=== PATIENT | female | born 1990 | race Caucasian/White ===

== ENCOUNTER 2019-01-26 12:21 | Emergency (ER) | payer MEDICAID ==
[~2019-01-26] VITALS: Ht 170.2 cm; Wt 132.6 kg
[~2019-01-26 12:21] MED LIST: DIVA500T2 PO; FENO54TA17 PO; HYDR25CA PO; LAMO25TA5 PO; METH500T97 PO; ONDA4TAB7 PO; OXCA300T19 PO; OXYC1TAB7 PO; ZOLP-413 PO
[2019-01-26 13:53] LABS: BASOPHILS # (AUTO) 0.04 x10^3/uL (0-0.1); BASOPHILS % (AUTO) 0 % (0-1); EOSINOPHILS # (AUTO) 0.09 x10^3/uL (0-0.4); EOSINOPHILS % (AUTO) 1 % (1-7); LYMPHOCYTES # (AUTO) 2.49 x10^3/uL (1-3.4); LYMPHOCYTES % (AUTO) 24 % (22-44); MD NO; MEAN CORPUSCULAR HEMOGLOBIN 28.4 pg (27.0-34.8); MEAN CORPUSCULAR HGB CONC 33.5 g/dL (32.4-35.8); MEAN CORPUSCULAR VOLUME 84.8 fL (80-100); MEAN PLATELET VOLUME 7.5 fL (7.4-10.4); MONOCYTES # (AUTO) 0.57 x10^3/uL (0.2-0.8); MONOCYTES % (AUTO) 6 % (2-9); NEUTROPHILS # (AUTO) 7.18 x10^3/uL (1.8-6.8); NEUTROPHILS % (AUTO) 69 % (42-75); PLATELET COUNT 311 x10^3/uL (130-400); RED BLOOD COUNT 4.92 x10^6/uL (3.82-5.3); RED CELL DISTRIBUTION WIDTH 15.6 % (9.6-15.2)
[2019-01-26 14:02] LABS: ALBUMIN 3.5 g/dL (3.4-5.0); ANION GAP 7 mmol/L (5-15); CALCIUM 9.1 mg/dL (8.5-10.1); CHLORIDE 106 mmol/L (98-107); CREATININE 0.67 mg/dL (0.55-1.02)
[2019-01-26 14:03] LABS: CULTURE INDICATED? YES; HCG UR SG 1.017 (1.003-1.030); MICROSCOPIC INDICATED
[2019-01-26] MEDS ORDERED: ONDANSETRON ODT 4 MG ONE (15:03)
[2019-01-26] MEDS ORDERED: HYDROmorphone 1 MG/ML, 1ML ONE (15:04)
[2019-01-26] MEDS ORDERED: KETOROLAC 30 MG/1 ML ONE (15:13)
--- NOTE | 2019-01-26 15:17 | NUR ---
MEDICATED PATIENT WITH ZOFRAN, DILAUDID AND TORADOL. PT RESTING WITH NO COMPLAINTS. VS UPDATED AND WNL.
[2019-01-26 15:18] VITALS: BP 129/68
[2019-01-26] MEDS ORDERED: KETOROLAC 30 MG/1 ML IM ONE (15:30)
[2019-01-26] MEDS ORDERED: HYDROmorphone 1 MG/ML, 1ML IM ONE (15:30)
[2019-01-26] MEDS ORDERED: ONDANSETRON ODT 4 MG PO ONE (15:30)
--- NOTE | 2019-01-26 15:41 | NUR ---
Patient/Caregiver given discharge instructions and they have confirmed that they understand the instructions. Patient ambulatory with steady gait.
== END 2019-01-26 15:43 | disposition home or self-care (01) ==
LOC: ED 15:40
DX: R10.2 Pelvic and perineal pain (principal); G43.909 Migraine, unspecified, not intractable, without status migrainosus
CPT/HCPCS: 36415; 76830; 80048; 81001; 81025; 82040; 85025; 87086; 96372; 99284; J1170; J1885; Q0162

== ENCOUNTER 2019-03-05 15:23 | Emergency (ER) | payer MEDICAID ==
[~2019-03-05] VITALS: Ht 170.2 cm; Wt 136.6 kg
[~2019-03-05 15:23] MED LIST changes: +GABA300C10 PO
--- NOTE | 2019-03-05 16:16 | NUR ---
PT PRESENTS TO ED WITH RIGHT LOWER ABD PAIN ONSET 12 HRS AGO, WITH ASSOCIATED NAUSEA. PT STATES THAT SHE HAS MILD UTERINE CRAMPING BUT NO DRAINAGE OR BLEEDING. PT DENIES VOMITING/DIARRHEA. PT HAD LEFT OOPHORECTOMY 1 WEEK AGO S/P LEFT OVARIAN TORSION. PT REPORTS DRAINAGE FROM SURGICAL SITES TODAY. LAPROSCOPIC INCISIONS WITH SURGICAL GLUE X 4 PRESENT TO ABD, NO DRAINAGE, ERYTHEMA OR EDEMA NOTED. MARGINS WELL APPROXIMATED. PT ATTACHED TO BP AND SPO2 MONITORS. CALL LIGHT IN REACH. BLANKET PROVIDED. AWAITING MD AND ORDERS.
--- NOTE | 2019-03-05 16:18 | NUR ---
ERP KRISTY AT BEDSIDE TO EVALUATE PT.
[2019-03-05] MEDS ORDERED: HYDROmorphone 1 MG/ML, 1ML VIAL ONE ×2 (16:49→18:27)
[2019-03-05] MEDS ORDERED: HYDROmorphone 1 MG/ML, 1ML AMP IM PRN (17:00)
[2019-03-05] MEDS ORDERED: OXYC-302 PO (17:04)
[2019-03-05] MEDS ORDERED: GABA300C PO (17:04)
[2019-03-05] MEDS ORDERED: IBUP-1222 PO (17:04)
[2019-03-05] MEDS ORDERED: ACET325T14 PO (17:05)
--- NOTE | 2019-03-05 17:05 | NUR ---
PT MEDICATED PER EMAR, TOLERATED WELL. BP AND SPO2 MONITORS IN PLACE. PT REPORTS 8/10 RIGHT LOWER ABD PAIN AT THIS TIME. LAB AT BEDSIDE FOR DRAW.
--- NOTE | 2019-03-05 17:25 | NUR ---
PT RESTING ON GURNEY, PT A&O, RESPS EVEN AND UNLABORED. PT REPORTS PAIN LEVEL UNCHANGED SO FAR S/P DILAUDID. AWAITING US AND DISPO AT THIS TIME.
[2019-03-05 17:30] LABS: BASOPHILS # (AUTO) 0.04 x10^3/uL (0-0.1); BASOPHILS % (AUTO) 0 % (0-1); EOSINOPHILS # (AUTO) 0.12 x10^3/uL (0-0.4); EOSINOPHILS % (AUTO) 1 % (1-7); LYMPHOCYTES # (AUTO) 3.01 x10^3/uL (1-3.4); LYMPHOCYTES % (AUTO) 34 % (22-44); MD NO; MEAN CORPUSCULAR HEMOGLOBIN 28.9 pg (27.0-34.8); MEAN CORPUSCULAR HGB CONC 33.9 g/dL (32.4-35.8); MEAN CORPUSCULAR VOLUME 85.2 fL (80-100); MEAN PLATELET VOLUME 7.5 fL (7.4-10.4); MONOCYTES # (AUTO) 0.56 x10^3/uL (0.2-0.8); MONOCYTES % (AUTO) 6 % (2-9); NEUTROPHILS # (AUTO) 5.25 x10^3/uL (1.8-6.8); NEUTROPHILS % (AUTO) 58 % (42-75); PLATELET COUNT 326 x10^3/uL (130-400); RED BLOOD COUNT 4.43 x10^6/uL (3.82-5.3); RED CELL DISTRIBUTION WIDTH 16.3 % (9.6-15.2)
[2019-03-05 17:39] LABS: ALBUMIN 3.5 g/dL (3.4-5.0); ANION GAP 9 mmol/L (5-15); CHLORIDE 105 mmol/L (98-107); CREATININE 0.54 mg/dL (0.55-1.02)
--- NOTE | 2019-03-05 17:56 | NUR ---
PT IN US AT THIS TIME.
--- NOTE | 2019-03-05 18:18 | NUR ---
pt back from US, pt is a&o, resps even and unlabored. pt reports pain level improved s/p dilaudid but increased during ultrasound. KALEY Randle notified. verbal order received for repeat dose dilaudid, 1 mg IM.
[2019-03-05] MEDS ORDERED: HYDROmorphone 2 MG/ML, 1ML IM PRN (18:30)
--- NOTE | 2019-03-05 18:50 | NUR ---
report to break RN Oshaunnessey. pt a&o, resps even and unlabored, reports pain improved. bp and spo2 monitors in place.
--- NOTE | 2019-03-05 18:54 | NUR ---
break rn: pt reports improvement in pain. pt calling for ride home. pt resting calmly in bed. will continue to monitor.
[2019-03-05 19:43] VITALS: BP 136/83
== END 2019-03-05 19:45 | disposition home or self-care (01) ==
LOC: ED 16:01
DX: R10.2 Pelvic and perineal pain (principal)
CPT/HCPCS: 36415; 76830; 80048; 82040; 84703; 85025; 96372; 99284; J1170

== ENCOUNTER 2019-03-08 12:07 | Emergency (ER) | payer MEDICAID ==
[~2019-03-08] VITALS: Ht 170.2 cm; Wt 132.0 kg
[~2019-03-08 12:07] MED LIST changes: +ACET325T14 PO; +GABA300C PO; +IBUP-1222 PO; +OXYC-302 PO
--- NOTE | 2019-03-08 13:08 | NUR ---
Pt to 41 from lobby
[2019-03-08 13:18] LABS: BASOPHILS # (AUTO) 0.03 x10^3/uL (0-0.1); BASOPHILS % (AUTO) 0 % (0-1); EOSINOPHILS # (AUTO) 0.09 x10^3/uL (0-0.4); EOSINOPHILS % (AUTO) 1 % (1-7); LYMPHOCYTES # (AUTO) 2.37 x10^3/uL (1-3.4); LYMPHOCYTES % (AUTO) 16 % (22-44); MD NO; MEAN CORPUSCULAR HEMOGLOBIN 28.7 pg (27.0-34.8); MEAN CORPUSCULAR HGB CONC 33.6 g/dL (32.4-35.8); MEAN CORPUSCULAR VOLUME 85.5 fL (80-100); MEAN PLATELET VOLUME 7.3 fL (7.4-10.4); MONOCYTES # (AUTO) 0.45 x10^3/uL (0.2-0.8); MONOCYTES % (AUTO) 3 % (2-9); NEUTROPHILS # (AUTO) 11.81 x10^3/uL (1.8-6.8); NEUTROPHILS % (AUTO) 80 % (42-75); PLATELET COUNT 388 x10^3/uL (130-400); RED BLOOD COUNT 5.11 x10^6/uL (3.82-5.3); RED CELL DISTRIBUTION WIDTH 16.6 % (9.6-15.2)
[2019-03-08 13:23] LABS: ALANINE AMINOTRANSFERASE 30 U/L (12-78); ALBUMIN 3.9 g/dL (3.4-5.0); ANION GAP 11 mmol/L (5-15); CALCIUM 9.7 mg/dL (8.5-10.1); CHLORIDE 105 mmol/L (98-107); CREATININE 0.72 mg/dL (0.55-1.02)
[2019-03-08 13:27] LABS: ALKALINE PHOSPHATASE 86 U/L (45-117); BILIRUBIN,TOTAL 0.3 mg/dL (0.2-1.0); TOTAL PROTEIN 8.9 g/dL (6.4-8.2)
--- NOTE | 2019-03-08 13:42 | NUR ---
PATIENT TO US AFTER GIVING UA SAMPLE.
[2019-03-08 13:56] LABS: MICROSCOPIC AUTO
[2019-03-08 13:57] LABS: CULTURE INDICATED? NO
--- NOTE | 2019-03-08 14:18 | NUR ---
pt retuned from US, upright on gurney awake & calm, responds approp to staff, NAD, comfort measures provided, call light within reach.
[2019-03-08] MEDS ORDERED: MORPHINE SULFATE 4 MG/ML, 1ML ONE (14:43)
[2019-03-08] MEDS ORDERED: ONDANSETRON 2MG/ML, 2ML ONE (14:43)
[2019-03-08] MEDS ORDERED: ACETAMINOPHEN 325 MG TABLET ONE (14:43)
[2019-03-08] MEDS ORDERED: HYDROmorphone 1 MG/ML, 1ML VIAL ONE ×3 (14:58→17:28)
[2019-03-08] MEDS: HYDROmorphone 2 MG/ML, 1ML IVPush PRN ×2 (14:59→16:08)
[2019-03-08] MEDS ORDERED: ONDANSETRON 2MG/ML, 2ML IVPush ONE (15:00)
--- NOTE | 2019-03-08 15:02 | NUR ---
pt remains upright on gurney awake & calm, responds approp to staff, NAD, comfort measures provided, call light within reach.
--- NOTE | 2019-03-08 15:34 | NUR ---
pt to CT
--- NOTE | 2019-03-08 15:53 | NUR ---
pt returned from CT
--- NOTE | 2019-03-08 16:01 | NUR ---
pt upright on gurney awake & calm, responds approp to staff, NAD, comfort measures provided, call light within reach.
[2019-03-08] MEDS ORDERED: OMNIPAQUE 350 MG/ML, 100ML BOTTLE ONE (16:11)
--- NOTE | 2019-03-08 16:45 | NUR ---
report given to adina White transferred to room 4 via [facility].
--- NOTE | 2019-03-08 16:49 | NUR ---
Recieved report from OH Moore. All questions answered. Assuming care of pt.
[2019-03-08] MEDS ORDERED: SODIUM CHLORIDE 0.9% 1,000ML IVBOLUS ONE (17:00)
[2019-03-08] MEDS ORDERED: HYDROmorphone 2 MG/ML, 1ML IVPush PRN (17:00)
[2019-03-08 17:53] VITALS: BP 112/80
--- NOTE | 2019-03-08 17:55 | NUR ---
Provided pt medication per EMAR. Pt requesting water. Pt appreciative for medicaiton. All safety measures in place. Call light within reach.
== END 2019-03-08 18:35 | disposition home or self-care (01) ==
LOC: ED 15:15
DX: R31.29 Other microscopic hematuria (principal); G40.909 Epilepsy, unspecified, not intractable, without status epilepticus; Z86.718 Personal history of other venous thrombosis and embolism; Z90.49 Acquired absence of other specified parts of digestive tract; Z79.899 Other long term (current) drug therapy; Z88.0 Allergy status to penicillin; Z88.1 Allergy status to other antibiotic agents
CPT/HCPCS: 36415; 74177; 76830; 80053; 81001; 84703; 85025; 96374; 96375; 96376; 99284; J1170; J2405; J7030; Q9967

== ENCOUNTER 2019-04-07 18:16 | Emergency (ER) | payer MEDICAID ==
[~2019-04-07] VITALS: Ht 170.2 cm; Wt 131.5 kg
[2019-04-07 19:13] LABS: BASOPHILS # (AUTO) 0.03 x10^3/uL (0-0.1); BASOPHILS % (AUTO) 0 % (0-1); EOSINOPHILS # (AUTO) 0.13 x10^3/uL (0-0.4); EOSINOPHILS % (AUTO) 1 % (1-7); LYMPHOCYTES # (AUTO) 2.72 x10^3/uL (1-3.4); LYMPHOCYTES % (AUTO) 23 % (22-44); MD NO; MEAN CORPUSCULAR HEMOGLOBIN 28.9 pg (27.0-34.8); MEAN CORPUSCULAR HGB CONC 33.4 g/dL (32.4-35.8); MEAN CORPUSCULAR VOLUME 86.4 fL (80-100); MEAN PLATELET VOLUME 7.3 fL (7.4-10.4); MONOCYTES # (AUTO) 0.73 x10^3/uL (0.2-0.8); MONOCYTES % (AUTO) 6 % (2-9); NEUTROPHILS # (AUTO) 8.29 x10^3/uL (1.8-6.8); NEUTROPHILS % (AUTO) 70 % (42-75); PLATELET COUNT 314 x10^3/uL (130-400); RED BLOOD COUNT 4.69 x10^6/uL (3.82-5.3); RED CELL DISTRIBUTION WIDTH 15.7 % (9.6-15.2)
--- NOTE | 2019-04-07 19:18 | NUR ---
pt to room from lobby
--- NOTE | 2019-04-07 19:20 | NUR ---
pt in us, us called and rn asked to have them walk pt to room 14 when imaging is done
[2019-04-07 19:22] LABS: ANION GAP 8 mmol/L (5-15); CALCIUM 8.8 mg/dL (8.5-10.1); CHLORIDE 106 mmol/L (98-107)
--- NOTE | 2019-04-07 19:38 | NUR ---
URINE SAMPLE TAKEN TO LAB
--- NOTE | 2019-04-07 19:43 | NUR ---
OVARIAN CYST RIGHT SIDE, HAD ULTRASOUND 2 DAYS AGO, "RECEIVED A CALL FROM OB IN [place] TOLD HER TO GO TO ED DUE TO QUESTION OF TORSION". MONITORS APPLIED, PROVIDED PT WITH WARM BLANKET, CALL LIGHT WITHIN REACH.
--- NOTE | 2019-04-07 20:06 | NUR ---
PT UP TO RR WITH STEADY GAIT
[2019-04-07] MEDS ORDERED: ONDANSETRON ODT 4 MG ONE (20:12)
[2019-04-07] MEDS ORDERED: KETOROLAC 30 MG/1 ML ONE (20:12)
[2019-04-07] MEDS ORDERED: HYDROcodone/APAP 5/325 TABLET ONE (20:13)
[2019-04-07 20:15] LABS: MICROSCOPIC INDICATED
[2019-04-07 20:18] VITALS: BP 110/53
--- NOTE | 2019-04-07 20:19 | NUR ---
PT RESTING CALMLY, MEDICATED PER MAR, SIDERAILS UP X2, MONITORS IN PLACE, CALL LIGHT WITHIN REACH
[2019-04-07] MEDS ORDERED: KETOROLAC 30 MG/1 ML IM ONE (20:30)
[2019-04-07] MEDS ORDERED: HYDROcodone/APAP 5/325 TABLET PO ONE (20:30)
[2019-04-07] MEDS ORDERED: ONDANSETRON ODT 4 MG PO ONE (20:30)
[2019-04-07 20:36] LABS: CULTURE INDICATED? YES
[2019-04-07] MEDS ORDERED: ZIPRASIDONE 20 MG INJ IM ONE ×2 (21:14→21:30)
[2019-04-07] MEDS ORDERED: DICYCLOMINE 20 MG TABLET PO ONE (21:30)
[2019-04-07] MEDS ORDERED: DICYCLOMINE 20 MG TABLET ONE (21:41)
[2019-04-07] MEDS ORDERED: DICYCLOMINE 10 MG CAPSULE ONE (21:44)
--- NOTE | 2019-04-07 21:44 | NUR ---
Patient/Caregiver given discharge instructions and they have confirmed that they understand the instructions. Patient ambulatory with steady gait.
== END 2019-04-07 21:48 | disposition home or self-care (01) ==
LOC: ED 20:08
DX: N83.291 Other ovarian cyst, right side (principal)
CPT/HCPCS: 36415; 76830; 80048; 81001; 84703; 85025; 87086; 96372; 99284; J1885; Q0162

== ENCOUNTER 2019-04-25 14:43 | Emergency (ER) | payer MEDICAID ==
[~2019-04-25] VITALS: Ht 170.2 cm; Wt 129.0 kg
[2019-04-25] MEDS ORDERED: HYDROmorphone 1 MG/ML, 1ML INJ IVPush PRN (15:30)
[2019-04-25] MEDS ORDERED: ONDANSETRON 2MG/ML, 2ML IVPush ONE (15:30)
[2019-04-25] MEDS ORDERED: DIPHENHYDRAMINE 50 MG/ML, 1ML IVPush ONE (15:30)
[2019-04-25 15:38] LABS: BASOPHILS # (AUTO) 0.03 x10^3/uL (0-0.1); BASOPHILS % (AUTO) 0 % (0-1); EOSINOPHILS # (AUTO) 0.04 x10^3/uL (0-0.4); EOSINOPHILS % (AUTO) 0 % (1-7); LYMPHOCYTES # (AUTO) 2.15 x10^3/uL (1-3.4); LYMPHOCYTES % (AUTO) 22 % (22-44); MD NO; MEAN CORPUSCULAR HEMOGLOBIN 28.7 pg (27.0-34.8); MEAN CORPUSCULAR HGB CONC 32.6 g/dL (32.4-35.8); MEAN PLATELET VOLUME 7.7 fL (7.4-10.4); MONOCYTES # (AUTO) 0.63 x10^3/uL (0.2-0.8); MONOCYTES % (AUTO) 6 % (2-9); NEUTROPHILS # (AUTO) 7.02 x10^3/uL (1.8-6.8); NEUTROPHILS % (AUTO) 71 % (42-75); PLATELET COUNT 276 x10^3/uL (130-400); RED BLOOD COUNT 4.74 x10^6/uL (3.82-5.3); RED CELL DISTRIBUTION WIDTH 15.5 % (9.6-15.2)
[2019-04-25 15:51] LABS: ALANINE AMINOTRANSFERASE 42 U/L (12-78); ALBUMIN 3.4 g/dL (3.4-5.0); ANION GAP 7 mmol/L (5-15); CALCIUM 8.8 mg/dL (8.5-10.1); CHLORIDE 110 mmol/L (98-107); CREATININE 0.73 mg/dL (0.55-1.02)
[2019-04-25 15:55] LABS: ALKALINE PHOSPHATASE 73 U/L (45-117); BILIRUBIN,TOTAL 0.3 mg/dL (0.2-1.0); TOTAL PROTEIN 7.7 g/dL (6.4-8.2)
[2019-04-25 16:04] LABS: MICROSCOPIC NOT IND
[2019-04-25 16:06] LABS: CULTURE INDICATED? NO
[2019-04-25] MEDS ORDERED: DIPHENHYDRAMINE 50 MG/ML, 1ML ONE (16:13)
[2019-04-25] MEDS ORDERED: ONDANSETRON 2MG/ML, 2ML ONE (16:13)
[2019-04-25] MEDS ORDERED: HYDROmorphone 2 MG/ML, 1ML ONE (16:14)
[2019-04-25 17:38] VITALS: BP 119/78
== END 2019-04-25 18:30 | disposition home or self-care (01) ==
LOC: ED 15:52
DX: N83.201 Unspecified ovarian cyst, right side (principal); R10.84 Generalized abdominal pain; G40.909 Epilepsy, unspecified, not intractable, without status epilepticus; G43.909 Migraine, unspecified, not intractable, without status migrainosus; Z90.49 Acquired absence of other specified parts of digestive tract; Z90.89 Acquired absence of other organs; Z90.721 Acquired absence of ovaries, unilateral; Z86.718 Personal history of other venous thrombosis and embolism
CPT/HCPCS: 36415; 76830; 80053; 81003; 84703; 85025; 96374; 96375; 99284; J1170; J1200; J2405

== ENCOUNTER 2019-04-29 15:55 | Emergency (ER) | payer MEDICAID ==
[~2019-04-29] VITALS: Ht 170.2 cm; Wt 131.9 kg
--- NOTE | 2019-04-29 16:10 | NUR ---
Pt ambulated to the bathroom, urine sample cup in hand. Pt back to room and changing into gown.
[2019-04-29] MEDS ORDERED: KETOROLAC 30 MG/1 ML IVPush ONE (16:41)
[2019-04-29 16:58] LABS: MICROSCOPIC NOT IND
[2019-04-29] MEDS ORDERED: ONDANSETRON 2MG/ML, 2ML IVPush ONE (17:00)
[2019-04-29 17:02] LABS: CULTURE INDICATED? NO
[2019-04-29] MEDS ORDERED: ONDANSETRON 2MG/ML, 2ML ONE (17:02)
[2019-04-29] MEDS ORDERED: KETOROLAC 30 MG/1 ML ONE (17:02)
[2019-04-29 17:10] LABS: BASOPHILS # (AUTO) 0.02 x10^3/uL (0-0.1); BASOPHILS % (AUTO) 0 % (0-1); EOSINOPHILS # (AUTO) 0.08 x10^3/uL (0-0.4); EOSINOPHILS % (AUTO) 1 % (1-7); LYMPHOCYTES # (AUTO) 2.66 x10^3/uL (1-3.4); LYMPHOCYTES % (AUTO) 23 % (22-44); MD NO; MEAN CORPUSCULAR HEMOGLOBIN 28.8 pg (27.0-34.8); MEAN CORPUSCULAR HGB CONC 32.7 g/dL (32.4-35.8); MEAN CORPUSCULAR VOLUME 87.9 fL (80-100); MEAN PLATELET VOLUME 7.7 fL (7.4-10.4); MONOCYTES # (AUTO) 0.63 x10^3/uL (0.2-0.8); MONOCYTES % (AUTO) 5 % (2-9); NEUTROPHILS # (AUTO) 8.41 x10^3/uL (1.8-6.8); NEUTROPHILS % (AUTO) 71 % (42-75); PLATELET COUNT 313 x10^3/uL (130-400); RED BLOOD COUNT 4.86 x10^6/uL (3.82-5.3); RED CELL DISTRIBUTION WIDTH 15.1 % (9.6-15.2)
--- NOTE | 2019-04-29 17:11 | NUR ---
Pt medicated per MAR.
[2019-04-29 17:23] LABS: ALBUMIN 3.6 g/dL (3.4-5.0); ANION GAP 9 mmol/L (5-15); CALCIUM 9.4 mg/dL (8.5-10.1); CHLORIDE 104 mmol/L (98-107); CREATININE 0.65 mg/dL (0.55-1.02)
--- NOTE | 2019-04-29 18:39 | NUR ---
Dr. Davidson at bedside to evaluate pt.
--- NOTE | 2019-04-29 19:10 | NUR ---
Pt ambulated to bathroom, no assistance required.
[2019-04-29] MEDS ORDERED: HYDROcodone/APAP 5/325 TABLET PO ONE (19:20)
[2019-04-29] MEDS ORDERED: HYDROcodone/APAP 5/325 TABLET ONE (19:35)
--- NOTE | 2019-04-29 19:38 | NUR ---
Pt medicated per MAR.
[2019-04-29 19:40] VITALS: BP 125/81
--- NOTE | 2019-04-29 19:40 | NUR ---
Patient/Caregiver given discharge instructions and they have confirmed that they understand the instructions. Patient ambulatory with steady gait.
== END 2019-04-29 19:43 | disposition home or self-care (01) ==
LOC: ED 19:34
DX: N83.291 Other ovarian cyst, right side (principal); G40.909 Epilepsy, unspecified, not intractable, without status epilepticus; E66.01 Morbid (severe) obesity due to excess calories; Z68.42 Body mass index [BMI] 45.0-49.9, adult
CPT/HCPCS: 36415; 76830; 80048; 81003; 82040; 84703; 85025; 96374; 96375; 99284; J1885; J2405

== ENCOUNTER 2019-10-03 22:14 | Emergency (ER) | payer MEDICAID ==
[~2019-10-03] VITALS: Ht 170.2 cm; Wt 124.6 kg
[~2019-10-03 22:14] MED LIST changes: +ATOR20TA86 PO; +OXYC5TAB3 PO; +SERT100T PO
--- NOTE | 2019-10-03 23:20 | NUR ---
PT TO ROOM FROM LOBBY
[2019-10-03 23:54] LABS: MICROSCOPIC INDICATED
[2019-10-03 23:55] LABS: BASOPHILS # (AUTO) 0.02 x10^3/uL (0-0.1); BASOPHILS % (AUTO) 0 % (0-1); EOSINOPHILS # (AUTO) 0.16 x10^3/uL (0-0.4); EOSINOPHILS % (AUTO) 2 % (1-7); LYMPHOCYTES # (AUTO) 2.71 x10^3/uL (1-3.4); LYMPHOCYTES % (AUTO) 32 % (22-44); MD NO; MEAN CORPUSCULAR HEMOGLOBIN 29.1 pg (27.0-34.8); MEAN CORPUSCULAR HGB CONC 32.8 g/dL (32.4-35.8); MEAN CORPUSCULAR VOLUME 88.9 fL (80-100); MONOCYTES # (AUTO) 0.58 x10^3/uL (0.2-0.8); MONOCYTES % (AUTO) 7 % (2-9); NEUTROPHILS # (AUTO) 5.12 x10^3/uL (1.8-6.8); NEUTROPHILS % (AUTO) 60 % (42-75); PLATELET COUNT 230 x10^3/uL (130-400); RED BLOOD COUNT 4.24 x10^6/uL (3.82-5.3); RED CELL DISTRIBUTION WIDTH 15.5 % (9.6-15.2)
[2019-10-04 00:03] LABS: CHLORIDE 108 mmol/L (98-107)
[2019-10-04 00:03] LABS: CULTURE INDICATED? YES
[2019-10-04 00:09] LABS: ALBUMIN 3.2 g/dL (3.4-5.0); ANION GAP 7 mmol/L (5-15); CALCIUM 8.3 mg/dL (8.5-10.1)
--- NOTE | 2019-10-04 00:10 | NUR ---
BREAK RN: PT IN IMAGING
[2019-10-04 00:35] LABS: CREATININE 0.56 mg/dL (0.55-1.02)
[2019-10-04 00:43] VITALS: BP 121/78
== END 2019-10-04 01:25 | disposition home or self-care (01) ==
LOC: ED 10-04 01:19
DX: N83.291 Other ovarian cyst, right side (principal); G40.909 Epilepsy, unspecified, not intractable, without status epilepticus; Z90.49 Acquired absence of other specified parts of digestive tract
CPT/HCPCS: 36415; 76830; 80048; 81001; 82040; 84703; 85025; 87086; 99284

== ENCOUNTER 2019-11-07 10:52 | Emergency (ER) | payer MEDICAID ==
[~2019-11-07] VITALS: Ht 170.2 cm; Wt 121.5 kg
[2019-11-07 11:23] VITALS: BP 144/87
== END 2019-11-07 11:56 | disposition home or self-care (01) ==
LOC: ED 11:46
DX: Z76.0 Encounter for issue of repeat prescription (principal); Z90.89 Acquired absence of other organs; Z90.49 Acquired absence of other specified parts of digestive tract; Z90.722 Acquired absence of ovaries, bilateral
CPT/HCPCS: 99283

== ENCOUNTER 2019-11-08 19:48 | Emergency (ER) | payer MEDICAID ==
[~2019-11-08] VITALS: Ht 170.2 cm; Wt 121.4 kg
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
[2019-11-08] MEDS ORDERED: HYDROcodone/APAP 5/325 TABLET ONE ×2 (20:23→21:50)
[2019-11-08] MEDS ORDERED: SODIUM CHLORIDE FLUSH 10ML SYR IVF ONE (20:30)
[2019-11-08] MEDS ORDERED: HYDROcodone/APAP 5/325 TABLET PO ONE (20:30)
--- NOTE | 2019-11-08 20:40 | NUR ---
PIV ESTB. MED PER JAN. UA WALKED TO LAB. AWARE OF PENDING CT. AMBULATORY TO RESTROOM C STEADY GAIT. CALL LIGHT INREACH.
[2019-11-08 20:46] LABS: MICROSCOPIC NOT IND
[2019-11-08 20:49] LABS: BASOPHILS # (AUTO) 0.05 x10^3/uL (0-0.1); BASOPHILS % (AUTO) 0 % (0-1); EOSINOPHILS % (AUTO) 2 % (1-7); LYMPHOCYTES # (AUTO) 3.13 x10^3/uL (1-3.4); LYMPHOCYTES % (AUTO) 26 % (22-44); MD NO; MEAN CORPUSCULAR HEMOGLOBIN 29.4 pg (27.0-34.8); MEAN CORPUSCULAR HGB CONC 32.5 g/dL (32.4-35.8); MEAN CORPUSCULAR VOLUME 90.4 fL (80-100); MONOCYTES # (AUTO) 0.63 x10^3/uL (0.2-0.8); MONOCYTES % (AUTO) 5 % (2-9); NEUTROPHILS # (AUTO) 7.84 x10^3/uL (1.8-6.8); NEUTROPHILS % (AUTO) 66 % (42-75); PLATELET COUNT 312 x10^3/uL (130-400); RED BLOOD COUNT 4.96 x10^6/uL (3.82-5.3); RED CELL DISTRIBUTION WIDTH 15.7 % (9.6-15.2)
[2019-11-08 20:52] LABS: ALANINE AMINOTRANSFERASE 39 U/L (12-78); ALBUMIN 3.5 g/dL (3.4-5.0); ANION GAP 10 mmol/L (5-15); CALCIUM 9.5 mg/dL (8.5-10.1); CHLORIDE 108 mmol/L (98-107); CREATININE 0.69 mg/dL (0.55-1.02)
[2019-11-08 20:55] LABS: ALKALINE PHOSPHATASE 95 U/L (45-117); BILIRUBIN,TOTAL 0.4 mg/dL (0.2-1.0); TOTAL PROTEIN 8.3 g/dL (6.4-8.2)
[2019-11-08 20:56] LABS: CULTURE INDICATED? NO
--- NOTE | 2019-11-08 21:07 | NUR ---
PT C/O INCREASED LOWER ABD PAIN "SPASMS" RAD TO BACK. WILL LET MD KNOW.
[2019-11-08] MEDS ORDERED: OMNIPAQUE 350 MG/ML, 100ML BOTTLE ONE (21:48)
[2019-11-08] MEDS ORDERED: HYDROcodone/APAP 5/325 TABLET PO STA (21:49)
--- NOTE | 2019-11-08 22:13 | NUR ---
AT FOR CO-DISCHARGE.
[2019-11-08 22:32] VITALS: BP 127/98
[2019-11-08 22:34] LABS: HCG UR SG 1.021 (1.003-1.030)
== END 2019-11-08 22:34 | disposition home or self-care (01) ==
LOC: ED 20:09
DX: S16.1XXA Strain of muscle, fascia and tendon at neck level, initial encounter (principal); R10.84 Generalized abdominal pain; M54.9 Dorsalgia, unspecified; G89.29 Other chronic pain; Z90.89 Acquired absence of other organs; Z90.49 Acquired absence of other specified parts of digestive tract; Z86.718 Personal history of other venous thrombosis and embolism; V49.59XA Passenger injured in collision with other motor vehicles in traffic accident, initial encounter; Y93.89 Activity, other specified; Y92.410 Unspecified street and highway as the place of occurrence of the external cause; Y99.8 Other external cause status
CPT/HCPCS: 36415; 72125; 74177; 80053; 81003; 81025; 83690; 85025; 99284; Q9967

== ENCOUNTER 2019-11-30 08:22 | Emergency (ER) | payer MEDICAID ==
[~2019-11-30] VITALS: Ht 170.2 cm; Wt 125.0 kg
[2019-11-30 08:30] VITALS: BP 139/83
[2019-11-30 09:19] LABS: BASOPHILS # (AUTO) 0.04 x10^3/uL (0-0.1); BASOPHILS % (AUTO) 1 % (0-1); EOSINOPHILS # (AUTO) 0.18 x10^3/uL (0-0.4); EOSINOPHILS % (AUTO) 3 % (1-7); LYMPHOCYTES # (AUTO) 1.95 x10^3/uL (1-3.4); LYMPHOCYTES % (AUTO) 36 % (22-44); MD NO; MEAN CORPUSCULAR HEMOGLOBIN 30.3 pg (27.0-34.8); MEAN CORPUSCULAR HGB CONC 33.8 g/dL (32.4-35.8); MEAN CORPUSCULAR VOLUME 89.5 fL (80-100); MEAN PLATELET VOLUME 7.9 fL (7.4-10.4); MONOCYTES # (AUTO) 0.39 x10^3/uL (0.2-0.8); MONOCYTES % (AUTO) 7 % (2-9); NEUTROPHILS # (AUTO) 2.94 x10^3/uL (1.8-6.8); NEUTROPHILS % (AUTO) 54 % (42-75); PLATELET COUNT 230 x10^3/uL (130-400); RED BLOOD COUNT 4.97 x10^6/uL (3.82-5.3); RED CELL DISTRIBUTION WIDTH 15.9 % (9.6-15.2)
[2019-11-30 09:33] LABS: ALBUMIN 3.4 g/dL (3.4-5.0); ANION GAP 6 mmol/L (5-15); CALCIUM 8.4 mg/dL (8.5-10.1); CHLORIDE 106 mmol/L (98-107); CREATININE 0.67 mg/dL (0.55-1.02)
--- NOTE | 2019-11-30 09:34 | NUR ---
COMMUNITY SPORTS COORDINATOR: PT IN ULTRASOUND,
--- NOTE | 2019-11-30 10:11 | NUR ---
TEST AUTOMATION ARCHITECT: PT TO ROOM FROM LOBBY, GAIT SLOW AND STEADY
[2019-11-30] MEDS ORDERED: NAPROXEN 500 MG TABLET ONE (10:38)
--- NOTE | 2019-11-30 10:52 | NUR ---
PT LEFT AMA, STATES "I THINK I WAS SUPPOSED TO GO TO A DIFFERENT BUILDING. I WAS SUPPOSED TO HAVE A 2-HR SURGERY FOR MY OVARIAN CYSTS THIS MORNING BUT THEY TOLD ME THEY COULDN'T DO IT BECAUSE THEY DIDN'T HAVE THE PAPERWORK & SENT ME HERE TO GET IT DONE." THIS RN ENCOURAGED PT TO STAY FOR LAB RESULTS BUT PT DECLINED & REQUESTED TO LEAVE, DR ABBOTT AWARE, PT SIGNED AMA FORM & AMBULATED STEADILY TO UT DESK PWD.
[2019-11-30] MEDS ORDERED: NAPROXEN 500 MG TABLET PO ONE (11:00)
[2019-12-01 10:30] LABS: MICROSCOPIC NOT IND
[2019-12-01 10:47] LABS: CULTURE INDICATED? NO
== END 2019-11-30 10:52 | disposition left against medical advice (07) ==
LOC: ED 10:39
DX: N83.201 Unspecified ovarian cyst, right side (principal); Z90.89 Acquired absence of other organs; Z90.49 Acquired absence of other specified parts of digestive tract; Z86.718 Personal history of other venous thrombosis and embolism; Z90.721 Acquired absence of ovaries, unilateral
CPT/HCPCS: 36415; 76830; 80048; 81003; 82040; 84703; 85025; 99284

== ENCOUNTER 2020-03-31 21:08 | Observation (INO) | payer MEDICAID ==
[~2020-03-31] VITALS: Ht 170.2 cm; Wt 128.0 kg
[2020-03-31] MEDS ORDERED: ONDANSETRON 2MG/ML, 2ML IVPush ONE (21:30)
[2020-03-31] MEDS ORDERED: SODIUM CHLORIDE FLUSH 10ML SYR IVF ONE ×2 (21:30→23:00)
[2020-03-31] MEDS ORDERED: ONDANSETRON 2MG/ML, 2ML ONE (21:37)
[2020-03-31] MEDS ORDERED: MORPHINE SULFATE 4 MG/ML, 1ML ONE ×3 (21:38→23:20)
[2020-03-31] MEDS: MORPHINE SULFATE 4 MG/ML, 1ML IVPush PRN ×2 (21:46→22:42)
--- NOTE | 2020-03-31 21:46 | NUR ---
DISCUSSED PT'S ALLERGIES, PT STATED SHE HAS HAD MORPHINE IN PAST WITH NO COMPLICATIONS
[2020-03-31 21:49] LABS: BASOPHILS # (AUTO) 0.05 x10^3/uL (0-0.1); BASOPHILS % (AUTO) 0 % (0-1); EOSINOPHILS # (AUTO) 0.17 x10^3/uL (0-0.4); EOSINOPHILS % (AUTO) 1 % (1-7); LYMPHOCYTES # (AUTO) 4.54 x10^3/uL (1-3.4); LYMPHOCYTES % (AUTO) 35 % (22-44); MD NO; MEAN CORPUSCULAR HGB CONC 33.2 g/dL (32.4-35.8); MEAN CORPUSCULAR VOLUME 93.6 fL (80-100); MEAN PLATELET VOLUME 7.5 fL (7.4-10.4); MONOCYTES # (AUTO) 1.01 x10^3/uL (0.2-0.8); MONOCYTES % (AUTO) 8 % (2-9); NEUTROPHILS # (AUTO) 7.08 x10^3/uL (1.8-6.8); NEUTROPHILS % (AUTO) 55 % (42-75); PLATELET COUNT 367 x10^3/uL (130-400); RED BLOOD COUNT 4.62 x10^6/uL (3.82-5.3); RED CELL DISTRIBUTION WIDTH 13.9 % (9.6-15.2)
--- NOTE | 2020-03-31 21:51 | NUR ---
PT RESTING ON GURNEY, MONITORS APPLIED, SIDERAIL SUP X2, CALL LIGHT WITHIN REACH. IV SITE STARTED, PT MEDICATED PER JAN. URINE SAMPLE TAKEN TO LAB
[2020-03-31 21:52] LABS: ALANINE AMINOTRANSFERASE 38 U/L (12-78); ALBUMIN 3.4 g/dL (3.4-5.0); ANION GAP 10 mmol/L (5-15); CALCIUM 8.8 mg/dL (8.5-10.1); CHLORIDE 107 mmol/L (98-107)
[2020-03-31 21:57] LABS: ALKALINE PHOSPHATASE 81 U/L (45-117); BILIRUBIN,TOTAL 0.2 mg/dL (0.2-1.0)
[2020-03-31 22:06] LABS: MICROSCOPIC INDICATED
[2020-03-31 22:15] LABS: CULTURE INDICATED? YES
[2020-03-31] MEDS ORDERED: IBUP100T PO (22:25)
--- NOTE | 2020-03-31 22:42 | NUR ---
PT POLYMER TESTER LIGHT REQUESTING MORE PAIN MEDICATION, STATED RIGHT BACK AND ABDOMEN PAIN IS BACK. PT MEDICATED PER MAR
--- NOTE | 2020-03-31 22:47 | NUR ---
TEACHER ASSOCIATE: DR. VIRIDIANA COLVIN/POSTDOCTORAL FELLOW PROVIDER (DR. RICK) FOR HIS OFFICE PAGED PER DR. VEGA REQUEST.
[2020-03-31] MEDS ORDERED: SODIUM CHLORIDE 0.9% 1,000ML IVBOLUS ONE (23:00)
[2020-03-31] MEDS ORDERED: MORPHINE SULFATE 4 MG/ML, 1ML IVPush PRN (23:00)
--- NOTE | 2020-03-31 23:42 | NUR ---
PT RESTING ON GURNEY, DENIES NEEDS, CALL LIGHT WITHIN REACH. AWAITING GYNE TO SEE
--- NOTE | 2020-04-01 00:03 | NUR ---
MILAGRO FROM SURGERY ON TELEPHONE UPDATED ON PT STATUS, VS, RESULTS. PT TO SURGERY IN 5-10 MINS
--- NOTE | 2020-04-01 00:06 | NUR ---
Pt ambulated to restroom and asked to please strip clothes off to prepare for surgery, verbalized understanding. Pt also asked to please void.
[2020-04-01] MEDS ORDERED: BUPIVACAINE/PF-EPI 0.25% 1:200K ONE (00:18)
[2020-04-01] MEDS ORDERED: FENTANYL PF 100 MCG/2ML ONE ×4 (00:47→02:13)
[2020-04-01] MEDS ORDERED: VANCOMYCIN 1,000 MG ONE (00:58)
[2020-04-01] MEDS ORDERED: HALOPERIDOL 5 MG/ML IV PRN (01:00)
[2020-04-01] MEDS ORDERED: LABETALOL 5MG/ML, 20ML IV PRN (01:00)
[2020-04-01] MEDS ORDERED: HYDROmorphone 2 MG/ML, 1ML IVPush PRN (01:00)
[2020-04-01] MEDS ORDERED: OXYcodone 5 MG/5 ML ORAL.SOL UDC PO PRN ×2 (01:00→02:30)
[2020-04-01] MEDS ORDERED: hydrALAzine 20 MG/ML, 1ML IV PRN (01:00)
[2020-04-01] MEDS ORDERED: BUPIVACAINE/PF-EPI 0.25% 1:200K INFIL ONE (01:31)
[2020-04-01] MEDS ORDERED: SUGAMMADEX 200 MG/2 ML IVPush ONE (01:43)
[2020-04-01] MEDS ORDERED: GLYCOPYRROLATE 0.2MG/1ML, 5ML ONE (02:01)
[2020-04-01] MEDS ORDERED: CEFAZOLIN 1,000 MG ONE (02:01)
[2020-04-01] MEDS ORDERED: DEXAMETHASONE 4 MG/ML, 1ML ONE (02:01)
[2020-04-01] MEDS ORDERED: ROCURONIUM 10MG/ML,5ML ONE (02:01)
[2020-04-01] MEDS ORDERED: PROPOFOL 10 MG/ML, 20ML ONE (02:01)
[2020-04-01] MEDS ORDERED: SUCCINYLCHOLINE 20 MG/ML, 10ML ONE (02:01)
[2020-04-01] MEDS ORDERED: ONDANSETRON 2MG/ML, 2ML ONE (02:01)
[2020-04-01] MEDS ORDERED: NEOSTIGMINE 1 MG/ML, 10ML ONE (02:01)
[2020-04-01] MEDS ORDERED: LACTATED RINGERS 1,000 ML IV SCH (02:05)
[2020-04-01] MEDS ORDERED: MEPERIDINE/PF 25MG/ML,1ML ONE ×2 (02:13→02:27)
[2020-04-01] MEDS ORDERED: OXYcodone 5 MG/5 ML ORAL.SOL UDC ONE (02:13)
[2020-04-01] MEDS: MEPERIDINE/PF 25MG/ML,1ML IVPush PRN ×2 (02:15→02:30)
[2020-04-01] MEDS: FENTANYL PF 100 MCG/2ML IV PRN ×2 (02:20→02:25)
[2020-04-01] MEDS ORDERED: LORazepam 2 MG/ML, 1ML ONE (02:27)
[2020-04-01] MEDS ORDERED: ONDANSETRON 2MG/ML, 2ML IVPush PRN (02:30)
[2020-04-01] MEDS ORDERED: LORazepam 2 MG/ML, 1ML IVPush PRN (03:00)
[2020-04-01 03:15] VITALS: BP 103/67
[2020-04-01] MEDS: morphine SULFATE 10 MG/ML, 1ML IVPush PRN ×2 (03:42→04:53)
[2020-04-01] MEDS ORDERED: OXYC5CAP2 PO (05:11)
[2020-04-04] MEDS ORDERED: ONDA4TAB7 PO (07:15)
== END 2020-04-01 06:03 | disposition home or self-care (01) ==
LOC: ED 21:39 → INTOOBSV 04-01 00:12 → EDIP 04-01 00:12 → 4NE 04-01 03:26
PROVIDERS: ADMIT Obstetrics & Gynecology; ATTEND Obstetrics & Gynecology
DX: R10.31 Right lower quadrant pain (principal); G40.909 Epilepsy, unspecified, not intractable, without status epilepticus; G89.29 Other chronic pain; E66.01 Morbid (severe) obesity due to excess calories; K57.92 Diverticulitis of intestine, part unspecified, without perforation or abscess without bleeding; R11.2 Nausea with vomiting, unspecified; Z90.49 Acquired absence of other specified parts of digestive tract; Z90.721 Acquired absence of ovaries, unilateral; Z79.899 Other long term (current) drug therapy
CPT/HCPCS: 36415; 49320; 74176; 76830; 80053; 81001; 84703; 85025; 87086; 96374; 96375; 96376; 99285; G0378; J0330; J0690; J1100; J2060; J2175; J2270; J2405; J2704; J3010; J3370; J7030; 96361; J2710

== ENCOUNTER 2020-04-02 15:47 | Emergency (ER) | payer MEDICAID ==
[~2020-04-02] VITALS: Ht 170.2 cm; Wt 105.0 kg
[~2020-04-02 15:47] MED LIST changes: +IBUP100T PO; +OXYC5CAP2 PO
--- NOTE | 2020-04-02 16:04 | NUR ---
PT CAME IN CO OF ABD PAIN SINCE YESTERDAY. "I HAD ABD SURGERY YESTERDAY AND SINCE THEN I HAVE BEEN PUKING AND I CANT KEEP MY MEDS OR ANY FOOD OR WATER DOWN". DENIES PAINFUL URINATED. MD IS BEDSIDE FOR ASSESMENT.
[2020-04-02] MEDS ORDERED: ONDANSETRON 2MG/ML, 2ML ONE (16:13)
[2020-04-02] MEDS ORDERED: ONDANSETRON 2MG/ML, 2ML IVPush ONE (16:30)
[2020-04-02 16:49] LABS: BASOPHILS # (AUTO) 0.05 x10^3/uL (0-0.1); BASOPHILS % (AUTO) 1 % (0-1); EOSINOPHILS # (AUTO) 0.07 x10^3/uL (0-0.4); EOSINOPHILS % (AUTO) 1 % (1-7); LYMPHOCYTES # (AUTO) 3.22 x10^3/uL (1-3.4); LYMPHOCYTES % (AUTO) 40 % (22-44); MD NO; MEAN CORPUSCULAR HEMOGLOBIN 30.5 pg (27.0-34.8); MEAN CORPUSCULAR HGB CONC 32.7 g/dL (32.4-35.8); MEAN CORPUSCULAR VOLUME 93.1 fL (80-100); MEAN PLATELET VOLUME 7.5 fL (7.4-10.4); MONOCYTES # (AUTO) 0.51 x10^3/uL (0.2-0.8); MONOCYTES % (AUTO) 6 % (2-9); NEUTROPHILS # (AUTO) 4.32 x10^3/uL (1.8-6.8); NEUTROPHILS % (AUTO) 53 % (42-75); PLATELET COUNT 286 x10^3/uL (130-400); RED BLOOD COUNT 4.16 x10^6/uL (3.82-5.3); RED CELL DISTRIBUTION WIDTH 13.8 % (9.6-15.2)
[2020-04-02 16:52] LABS: ALANINE AMINOTRANSFERASE 28 U/L (12-78); ALBUMIN 3.1 g/dL (3.4-5.0); ANION GAP 8 mmol/L (5-15); CALCIUM 8.5 mg/dL (8.5-10.1); CHLORIDE 105 mmol/L (98-107); CREATININE 0.68 mg/dL (0.55-1.02)
[2020-04-02 16:55] LABS: ALKALINE PHOSPHATASE 69 U/L (45-117); BILIRUBIN,TOTAL 0.1 mg/dL (0.2-1.0); TOTAL PROTEIN 7.2 g/dL (6.4-8.2)
[2020-04-02] MEDS ORDERED: SODIUM CHLORIDE 0.9% 1,000ML IVBOLUS ONE (17:00)
[2020-04-02] MEDS ORDERED: SODIUM CHLORIDE FLUSH 10ML SYR IVF ONE (17:00)
[2020-04-02] MEDS ORDERED: HYDROcodone/APAP 5/325 TABLET PO STA (17:02)
[2020-04-02] MEDS ORDERED: HYDROcodone/APAP 5/325 TABLET ONE (17:03)
[2020-04-02 17:06] VITALS: BP 110/63
--- NOTE | 2020-04-02 17:06 | NUR ---
PT MEDICATED PER MAR
[2020-04-04] MEDS ORDERED: ONDA4TAB7 PO (07:15)
== END 2020-04-02 18:23 | disposition home or self-care (01) ==
LOC: ED 16:32
DX: K29.00 Acute gastritis without bleeding (principal); R11.2 Nausea with vomiting, unspecified; E86.0 Dehydration; G43.909 Migraine, unspecified, not intractable, without status migrainosus; Z90.49 Acquired absence of other specified parts of digestive tract; Z86.718 Personal history of other venous thrombosis and embolism
CPT/HCPCS: 36415; 80053; 83690; 85025; 96361; 96374; 99283; J2405; J7030

== ENCOUNTER → 2020-04-03 | Emergency (ER) | payer MEDICAID ==
[~2020-04-03] VITALS: Ht 170.2 cm; Wt 100.0 kg
[~2020-04-03] MED LIST changes: +DIVALPROEX 500 MG TABLET.DR ONE; +DIVALPROEX 500 MG TABLET.DR PO ONE; +DIVALPROEX 500 MG TABLET.DR PO SCH; +HYDROmorphone 1 MG/ML, 1ML INJ IM ONE; +HYDROmorphone 1 MG/ML, 1ML INJ ONE; +ONDANSETRON ODT 4 MG ONE; +ONDANSETRON ODT 4 MG PO ONE; +OXYcodone/APAP 10/325MG TABLET ONE; +OXYcodone/APAP 10/325MG TABLET PO ONE; +OXYcodone/APAP 5/325MG TABLET ONE; +OXYcodone/APAP 5/325MG TABLET PO ONE; +PLEASE ENTER HEIGHT AND WEIGHT MC SCH
[2020-04-03 20:59] LABS: BASOPHILS # (AUTO) 0.02 x10^3/uL (0-0.1); BASOPHILS % (AUTO) 0 % (0-1); EOSINOPHILS # (AUTO) 0.06 x10^3/uL (0-0.4); EOSINOPHILS % (AUTO) 1 % (1-7); LYMPHOCYTES # (AUTO) 2.42 x10^3/uL (1-3.4); LYMPHOCYTES % (AUTO) 23 % (22-44); MD NO; MEAN CORPUSCULAR HEMOGLOBIN 30.9 pg (27.0-34.8); MEAN CORPUSCULAR HGB CONC 33.8 g/dL (32.4-35.8); MEAN CORPUSCULAR VOLUME 91.3 fL (80-100); MEAN PLATELET VOLUME 7.8 fL (7.4-10.4); MONOCYTES # (AUTO) 0.48 x10^3/uL (0.2-0.8); MONOCYTES % (AUTO) 4 % (2-9); NEUTROPHILS # (AUTO) 7.77 x10^3/uL (1.8-6.8); NEUTROPHILS % (AUTO) 72 % (42-75); PLATELET COUNT 276 x10^3/uL (130-400); RED BLOOD COUNT 4.12 x10^6/uL (3.82-5.3); RED CELL DISTRIBUTION WIDTH 13.6 % (9.6-15.2)
[2020-04-03 21:05] LABS: ALANINE AMINOTRANSFERASE 27 U/L (12-78); ALBUMIN 3.1 g/dL (3.4-5.0); ANION GAP 5 mmol/L (5-15); CALCIUM 8.4 mg/dL (8.5-10.1); CHLORIDE 107 mmol/L (98-107); CREATININE 0.62 mg/dL (0.55-1.02); SALICYLATE LEVEL < 1.7 mg/dL (2.8-20.0)
[2020-04-03 21:10] LABS: ALKALINE PHOSPHATASE 66 U/L (45-117); BILIRUBIN,TOTAL 0.3 mg/dL (0.2-1.0); TOTAL PROTEIN 7.1 g/dL (6.4-8.2)
[2020-04-03 21:13] LABS: AMPHETAMINE SCREEN, URINE Negative (Negative); BARBITURATE SCREEN, URINE Negative (Negative); BENZODIAZEPINE SCREEN, URINE Negative (Negative); CANNABINOID SCREEN, URINE Negative (Negative); COCAINE SCREEN, URINE Negative (Negative); METHADONE SCREEN, URINE Negative (Negative); OPIATE SCREEN, URINE Positive (Negative)
--- NOTE | 2020-04-04 01:45 | NUR ---
Late entry, called [facility] and unit is bed full at this time.
[2020-04-04] MEDS: OXYcodone/APAP 5/325MG TABLET PO PRN ×2 (01:52→06:46)
[2020-04-04 02:17] LABS: MICROSCOPIC NOT IND
[2020-04-04 02:25] LABS: CULTURE INDICATED? NO
--- NOTE | 2020-04-04 03:00 | NUR ---
pt provived a hospital bed for pt comfort, pt has sitter at pt door, pt denied wants and new c/o.
--- NOTE | 2020-04-04 03:30 | NUR ---
TASK RN: PACKET FAXED TO [facility]. CONFIRMATION FAX RECEIVED.
--- NOTE | 2020-04-04 04:11 | NUR ---
pt resting in bed, pt a/o x4, pt denied any wants or needs at this time. pt room is si secured.
[2020-04-04 06:42] VITALS: BP 116/68
--- NOTE | 2020-04-04 07:22 | NUR ---
REPORT RECEIVED FROM CHAVEZ CASIANO. PT REPORTS NEW RUQ PAIN AND IS CONCERNED ABOUT CYSTS. WOULD LIKE TO SEE ED PROVIDER. PT AGREED TO SHOWER AFTER BREAKFAST. PT PLESANT AND COOPERATIVE AT THIS TIME. REPORTS NO THOUGHT OF SI THIS MORNING.
--- NOTE | 2020-04-04 07:25 | NUR ---
UPDATED THAT PT WOULD LIKE TO BE REEVALUATED BY HIM FOR RUQ PAIN.
--- NOTE | 2020-04-04 08:18 | NUR ---
BREAKFAST TRAY DELIVERED.
--- NOTE | 2020-04-04 09:24 | NUR ---
PT RESTING ON GURNEY WATCHING TV. NADN. SITTER OUTSIDE OF ROOM. WILL CONTINUE TO MONITOR.
--- NOTE | 2020-04-04 10:03 | NUR ---
ATTEMPT TO CALL REPORTX1.
--- NOTE | 2020-04-04 10:16 | NUR ---
REPORT TO ISIAH CASIANO. PT IS READY FOR TRANSPORT AT THIS TIME.
--- NOTE | 2020-04-04 10:24 | NUR ---
PT AMBULATED DOWN THE FINCH TO USE PHONE TO CONTACT FATHER.
--- NOTE | 2020-04-04 10:28 | NUR ---
PT RETURNED TO ROOM AWAITING TRANSPORT UPSTAIRS.
--- NOTE | 2020-04-04 10:46 | NUR ---
COPY OF LEGAL SENT TO [facility]
== END ==
LOC: ED 23:15
DX: R45.851 Suicidal ideations (principal); G43.909 Migraine, unspecified, not intractable, without status migrainosus; G89.18 Other acute postprocedural pain; R10.9 Unspecified abdominal pain; Z86.718 Personal history of other venous thrombosis and embolism
CPT/HCPCS: 36415; 80053; 80164; 80307; 84703; 85025; 96372; 99284; J1170; 81003; Q0162

== ENCOUNTER 2020-04-04 08:39 | Inpatient (IN) | payer MEDICAID ==
[~2020-04-04] VITALS: Ht 170.2 cm; Wt 117.9 kg
[~2020-04-04 08:39] MED LIST changes: -DIVALPROEX 500 MG TABLET.DR ONE; -DIVALPROEX 500 MG TABLET.DR PO ONE; -DIVALPROEX 500 MG TABLET.DR PO SCH; -HYDROmorphone 1 MG/ML, 1ML INJ IM ONE; -HYDROmorphone 1 MG/ML, 1ML INJ ONE; -ONDANSETRON ODT 4 MG ONE; -ONDANSETRON ODT 4 MG PO ONE; -OXYcodone/APAP 10/325MG TABLET ONE; -OXYcodone/APAP 10/325MG TABLET PO ONE; -OXYcodone/APAP 5/325MG TABLET ONE; -OXYcodone/APAP 5/325MG TABLET PO ONE; -PLEASE ENTER HEIGHT AND WEIGHT MC SCH
[2020-04-04] MEDS ORDERED: DOCUSATE 100 MG CAPSULE PO PRN (10:00)
[2020-04-04] MEDS ORDERED: POLYETHYLENE GLYCOL 17 GM PACKET PO PRN (10:00)
[2020-04-04] MEDS ORDERED: ACETAMINOPHEN 325 MG TABLET PO PRN (10:00)
[2020-04-04 10:36] LABS: CHOL/HDL RATIO 6.1; FREE T4 (FREE THYROXINE) 1.04 ng/dL (0.76-1.46); LDL/HDL RATIO 3.1 (0.5-3.0)
[2020-04-04] MEDS ORDERED: POTASSIUM CHLORIDE 10% 40 MEQ/30 ML UDC PO ONE (13:00)
[2020-04-04 13:45] VITALS: BP 116/88
[2020-04-04] MEDS: HYDROcodone/APAP 10/325 MG TABLET PO PRN ×2 (14:25→20:13)
[2020-04-04] MEDS: SERTRALINE 50MG TABLET PO SCH (14:41)
[2020-04-04 19:15] VITALS: BP 113/68
[2020-04-04] MEDS: TRAZODONE 100MG TABLET PO PRN (20:12)
[2020-04-04] MEDS: GABAPENTIN 300 MG CAPSULE PO SCH (21:39)
[2020-04-04] MEDS: DIVALPROEX 500 MG TABLET.DR PO SCH (21:40)
[2020-04-05] MEDS: HYDROcodone/APAP 10/325 MG TABLET PO PRN ×3 (05:08→17:42)
[2020-04-05 07:16] LABS: ANION GAP 7 mmol/L (5-15); CALCIUM 8.7 mg/dL (8.5-10.1); CHLORIDE 104 mmol/L (98-107); CREATININE 0.52 mg/dL (0.55-1.02)
[2020-04-05 07:33] VITALS: BP 130/82
[2020-04-05] MEDS: GABAPENTIN 300 MG CAPSULE PO SCH ×3 (08:40→20:04)
[2020-04-05] MEDS: SERTRALINE 50MG TABLET PO SCH (08:40)
[2020-04-05 19:30] VITALS: BP 102/68
[2020-04-05] MEDS: TRAZODONE 100MG TABLET PO PRN (20:04)
[2020-04-05] MEDS: DIVALPROEX 500 MG TABLET.DR PO SCH (20:04)
[2020-04-06] MEDS: HYDROcodone/APAP 10/325 MG TABLET PO PRN ×4 (00:28→20:37)
[2020-04-06 07:00] VITALS: BP 112/73
[2020-04-06] MEDS: SERTRALINE 50MG TABLET PO SCH (07:50)
[2020-04-06] MEDS: GABAPENTIN 300 MG CAPSULE PO SCH ×3 (07:50→20:37)
[2020-04-06] MEDS ORDERED: DIVA-61 PO (12:38)
[2020-04-06] MEDS ORDERED: TRAZ-175 PO (12:38)
[2020-04-06] MEDS ORDERED: GABA300C10 PO (12:38)
[2020-04-06] MEDS ORDERED: SERT50TA28 PO (12:38)
[2020-04-06 19:57] VITALS: BP 113/76
[2020-04-06] MEDS: TRAZODONE 100MG TABLET PO PRN (20:37)
[2020-04-06] MEDS: DIVALPROEX 500 MG TABLET.DR PO SCH (20:37)
[2020-04-07] MEDS: HYDROcodone/APAP 10/325 MG TABLET PO PRN ×2 (03:00→09:13)
[2020-04-07 05:33] VITALS: BP 117/72
[2020-04-07] MEDS: SERTRALINE 50MG TABLET PO SCH (08:39)
[2020-04-07] MEDS: GABAPENTIN 300 MG CAPSULE PO SCH (08:39)
== END 2020-04-07 09:48 | disposition home or self-care (01) | DRG 751 ==
LOC: 3E 11:19
PROVIDERS: ADMIT Psychiatry & Neurology Psychosomatic Medicine; ATTEND Psychiatry & Neurology Psychosomatic Medicine
DX: F33.2 Major depressive disorder, recurrent severe without psychotic features (principal); F11.20 Opioid dependence, uncomplicated; R45.851 Suicidal ideations; G89.29 Other chronic pain; E28.2 Polycystic ovarian syndrome; F60.3 Borderline personality disorder; G40.909 Epilepsy, unspecified, not intractable, without status epilepticus; E66.9 Obesity, unspecified; Z79.899 Other long term (current) drug therapy; Z83.3 Family history of diabetes mellitus; Z86.718 Personal history of other venous thrombosis and embolism; Z91.14 Patient's other noncompliance with medication regimen; Z88.1 Allergy status to other antibiotic agents; Z88.5 Allergy status to narcotic agent; Z88.0 Allergy status to penicillin; Z88.2 Allergy status to sulfonamides; Z88.8 Allergy status to other drugs, medicaments and biological substances; Z90.49 Acquired absence of other specified parts of digestive tract
CPT/HCPCS: 36415; 80048; 80061; 84439; 84443

== ENCOUNTER 2020-04-07 18:53 | Emergency (ER) | payer MEDICAID ==
[~2020-04-07] VITALS: Ht 170.2 cm; Wt 97.7 kg
[~2020-04-07 18:53] MED LIST changes: +DIVA-61 PO; +SERT50TA28 PO; +TRAZ-175 PO
[2020-04-07] MEDS ORDERED: MORPHINE SULFATE 4 MG/ML, 1ML ONE ×2 (19:27→20:07)
[2020-04-07] MEDS ORDERED: ONDANSETRON 2MG/ML, 2ML ONE (19:27)
[2020-04-07] MEDS ORDERED: SODIUM CHLORIDE FLUSH 10ML SYR IVF ONE (19:30)
[2020-04-07] MEDS ORDERED: ONDANSETRON 2MG/ML, 2ML IVPush ONE (19:30)
[2020-04-07] MEDS: MORPHINE SULFATE 4 MG/ML, 1ML IVPush PRN ×2 (19:34→20:11)
--- NOTE | 2020-04-07 19:35 | NUR ---
Break RN: blood drawn by outside laborer. urine sent to lab. medicated for pain and nausea. patient to Ultrasound.
[2020-04-07 19:36] LABS: BASOPHILS # (AUTO) 0.06 x10^3/uL (0-0.1); BASOPHILS % (AUTO) 1 % (0-1); EOSINOPHILS % (AUTO) 1 % (1-7); LYMPHOCYTES # (AUTO) 2.78 x10^3/uL (1-3.4); LYMPHOCYTES % (AUTO) 25 % (22-44); MD NO; MEAN CORPUSCULAR HEMOGLOBIN 30.7 pg (27.0-34.8); MEAN CORPUSCULAR HGB CONC 33.4 g/dL (32.4-35.8); MEAN PLATELET VOLUME 7.9 fL (7.4-10.4); MONOCYTES # (AUTO) 0.71 x10^3/uL (0.2-0.8); MONOCYTES % (AUTO) 6 % (2-9); NEUTROPHILS # (AUTO) 7.47 x10^3/uL (1.8-6.8); NEUTROPHILS % (AUTO) 67 % (42-75); PLATELET COUNT 308 x10^3/uL (130-400); RED CELL DISTRIBUTION WIDTH 13.8 % (9.6-15.2)
[2020-04-07 19:49] LABS: ALANINE AMINOTRANSFERASE 24 U/L (12-78); ALBUMIN 3.3 g/dL (3.4-5.0); ANION GAP 9 mmol/L (5-15); CALCIUM 9.1 mg/dL (8.5-10.1); CHLORIDE 104 mmol/L (98-107); CREATININE 0.65 mg/dL (0.55-1.02)
[2020-04-07 19:51] LABS: MICROSCOPIC NOT IND
[2020-04-07 19:53] LABS: ALKALINE PHOSPHATASE 81 U/L (45-117); BILIRUBIN,TOTAL 0.3 mg/dL (0.2-1.0)
--- NOTE | 2020-04-07 19:55 | NUR ---
back from CT scan. awaiting result. no new complaints.
[2020-04-07 20:02] LABS: CULTURE INDICATED? NO
--- NOTE | 2020-04-07 20:11 | NUR ---
patient re-medicated for pain. chart up for re-evaluation.
--- NOTE | 2020-04-07 20:30 | NUR ---
PT RESTING COMFORTABLY. WILL CONTINUE TO MONITOR
[2020-04-07] MEDS ORDERED: OXYcodone IR 5MG TABLET ONE (20:55)
[2020-04-07] MEDS ORDERED: OXYcodone IR 5MG TABLET PO ONE (21:00)
[2020-04-07 21:40] VITALS: BP 118/79
== END 2020-04-07 21:42 | disposition home or self-care (01) ==
LOC: ED 20:46
DX: R10.31 Right lower quadrant pain (principal); G89.29 Other chronic pain; R10.2 Pelvic and perineal pain; G40.909 Epilepsy, unspecified, not intractable, without status epilepticus; Z90.49 Acquired absence of other specified parts of digestive tract; Z90.89 Acquired absence of other organs; Z86.718 Personal history of other venous thrombosis and embolism; Z90.721 Acquired absence of ovaries, unilateral
CPT/HCPCS: 36415; 76830; 80053; 81003; 84703; 85025; 96374; 96375; 96376; 99284; J2270; J2405

== ENCOUNTER 2020-04-10 21:54 | Emergency (ER) | payer MEDICAID ==
[~2020-04-10] VITALS: Ht 170.2 cm; Wt 120.9 kg
[2020-04-10] MEDS ORDERED: HYDROcodone/APAP 5/325 TABLET PO ONE (23:00)
[2020-04-10] MEDS ORDERED: ONDANSETRON ODT 4 MG PO ONE (23:00)
--- NOTE | 2020-04-10 23:02 | NUR ---
PT PROVIDED WITH URINE CUP AND INSTRUCTED ON HOW TO OBTAIN A URINE SAMPLE. PT VERBALIZES UNDERSTANDING
[2020-04-10 23:03] LABS: BASOPHILS # (AUTO) 0.05 x10^3/uL (0-0.1); BASOPHILS % (AUTO) 1 % (0-1); EOSINOPHILS # (AUTO) 0.14 x10^3/uL (0-0.4); EOSINOPHILS % (AUTO) 2 % (1-7); LYMPHOCYTES # (AUTO) 3.31 x10^3/uL (1-3.4); LYMPHOCYTES % (AUTO) 35 % (22-44); MD NO; MEAN CORPUSCULAR HGB CONC 33.4 g/dL (32.4-35.8); MEAN CORPUSCULAR VOLUME 92.9 fL (80-100); MEAN PLATELET VOLUME 7.8 fL (7.4-10.4); MONOCYTES # (AUTO) 0.79 x10^3/uL (0.2-0.8); MONOCYTES % (AUTO) 8 % (2-9); NEUTROPHILS # (AUTO) 5.26 x10^3/uL (1.8-6.8); NEUTROPHILS % (AUTO) 55 % (42-75); PLATELET COUNT 245 x10^3/uL (130-400); RED BLOOD COUNT 3.87 x10^6/uL (3.82-5.3); RED CELL DISTRIBUTION WIDTH 13.7 % (9.6-15.2)
[2020-04-10 23:13] LABS: ALBUMIN 2.9 g/dL (3.4-5.0); ANION GAP 7 mmol/L (5-15); CALCIUM 8.4 mg/dL (8.5-10.1); CHLORIDE 104 mmol/L (98-107); CREATININE 0.62 mg/dL (0.55-1.02)
[2020-04-10] MEDS ORDERED: HYDROcodone/APAP 5/325 TABLET ONE ×2 (23:19→23:30)
[2020-04-10] MEDS ORDERED: ONDANSETRON ODT 4 MG ONE (23:19)
--- NOTE | 2020-04-10 23:21 | NUR ---
ATTEMPTED TO MEDICATE PT WITH PO MEDS. PT REFUSING AT THIS TIME STATING "THEY ALWAYS START AN IV AND GIVE ME PAIN MEDS". DR. TYSON AWARE AND STATES WE WILL NOT BE STARTING AN IV THIS VISIT.
--- NOTE | 2020-04-10 23:33 | NUR ---
PT ADVISED OF DR. TYSON'S PLAN. SHE IS NOW AGREEABLE TO THE PO MEDS. PT MEDICATED PER EMAR FOR PAIN. 5 RIGHTS ADDRESSED. PT REMINDED THE NEED FOR THE URINE SAMPLE AND ASKED TO GO TO THE RESTROOM TO TRY TO OBTAIN A SAMPLE
--- NOTE | 2020-04-11 00:21 | NUR ---
URINE SAMPLE PROVIDED. LABELED AND SENT TO LAB. PT SLEEPING. RESPIRATIONS EVEN AND UNLABORED.
[2020-04-11] MEDS ORDERED: DIVALPROEX 500 MG TABLET.DR PO ONE (00:30)
[2020-04-11] MEDS ORDERED: DIVALPROEX 500 MG TAB.ER.24H ONE (00:56)
[2020-04-11] MEDS ORDERED: DIVALPROEX 500 MG TABLET.DR ONE (00:56)
--- NOTE | 2020-04-11 00:57 | NUR ---
PLACED PT ON NASAL CANNULA @ 2L
[2020-04-11 00:58] LABS: MICROSCOPIC NOT IND
[2020-04-11 00:59] VITALS: BP 104/65
--- NOTE | 2020-04-11 00:59 | NUR ---
PT MEDICATED PER EMAR. 5 RIGHTS ADDRESSED. STILL AWAITING UA. VITALS STABLE. WILL CONTINUE TO MONITOR.
[2020-04-11 01:02] LABS: CULTURE INDICATED? NO
--- NOTE | 2020-04-11 01:26 | NUR ---
Patient/Caregiver given discharge instructions and they have confirmed that they understand the instructions. Patient ambulatory with steady gait.
== END 2020-04-11 01:28 | disposition home or self-care (01) ==
LOC: ED 04-11 00:35
DX: G40.409 Other generalized epilepsy and epileptic syndromes, not intractable, without status epilepticus (principal); G89.29 Other chronic pain; R10.31 Right lower quadrant pain; Z86.718 Personal history of other venous thrombosis and embolism; Z90.49 Acquired absence of other specified parts of digestive tract
CPT/HCPCS: 36415; 80048; 80164; 81003; 82040; 84703; 85025; 99284; Q0162

== ENCOUNTER 2020-04-12 12:50 | Emergency (ER) | payer MEDICAID ==
[~2020-04-12] VITALS: Ht 170.2 cm; Wt 119.0 kg
[2020-04-12] MEDS ORDERED: ONDANSETRON 2MG/ML, 2ML IVPush ONE (13:30)
[2020-04-12] MEDS ORDERED: SODIUM CHLORIDE FLUSH 10ML SYR IVF ONE (13:30)
[2020-04-12] MEDS ORDERED: MORPHINE SULFATE 4 MG/ML, 1ML ONE ×2 (13:43→14:31)
[2020-04-12] MEDS ORDERED: ONDANSETRON 2MG/ML, 2ML ONE (13:43)
[2020-04-12] MEDS: MORPHINE SULFATE 4 MG/ML, 1ML IVPush PRN ×2 (13:45→14:32)
[2020-04-12 13:48] LABS: BASOPHILS # (AUTO) 0.08 x10^3/uL (0-0.1); BASOPHILS % (AUTO) 1 % (0-1); EOSINOPHILS # (AUTO) 0.03 x10^3/uL (0-0.4); EOSINOPHILS % (AUTO) 0 % (1-7); HEMOGRAM NOTE RECHECKED; LYMPHOCYTES # (AUTO) 1.89 x10^3/uL (1-3.4); LYMPHOCYTES % (AUTO) 14 % (22-44); MD NO; MEAN CORPUSCULAR HEMOGLOBIN 31.2 pg (27.0-34.8); MEAN CORPUSCULAR HGB CONC 33.7 g/dL (32.4-35.8); MEAN CORPUSCULAR VOLUME 92.6 fL (80-100); MEAN PLATELET VOLUME 7.7 fL (7.4-10.4); MONOCYTES # (AUTO) 0.47 x10^3/uL (0.2-0.8); MONOCYTES % (AUTO) 4 % (2-9); NEUTROPHILS # (AUTO) 10.81 x10^3/uL (1.8-6.8); NEUTROPHILS % (AUTO) 81 % (42-75); PLATELET COUNT 284 x10^3/uL (130-400); RED BLOOD COUNT 4.33 x10^6/uL (3.82-5.3); RED CELL DISTRIBUTION WIDTH 13.9 % (9.6-15.2)
[2020-04-12 13:50] LABS: ANION GAP 8 mmol/L (5-15); CALCIUM 8.9 mg/dL (8.5-10.1); CHLORIDE 107 mmol/L (98-107); CREATININE 0.66 mg/dL (0.55-1.02)
--- NOTE | 2020-04-12 14:02 | NUR ---
AFTER MEDICATED FOR PAIN NOTED ON JAN PT TO ULTRASOUND
--- NOTE | 2020-04-12 14:38 | NUR ---
UPON RETURN FROM ULTRASOUND GIVEN ANOTHER DOSE OF MORPHINE FOR RIGHT ABDOMINAL AND PELVIC PAIN
[2020-04-12 15:01] LABS: MICROSCOPIC NOT IND
[2020-04-12 15:08] LABS: CULTURE INDICATED? NO
[2020-04-12] MEDS ORDERED: OMNIPAQUE 350 MG/ML, 100ML BOTTLE ONE (15:18)
[2020-04-12] MEDS ORDERED: HYDROmorphone 1 MG/ML, 1ML INJ ONE (16:07)
--- NOTE | 2020-04-12 16:15 | NUR ---
PROVIDER AWAITING CALL BACK FROM CYTOLOGIST CONSULT. ADDITIONALLY MEDICATED FOR RIGHT ABDOMINAL PAIN
[2020-04-12] MEDS ORDERED: HYDROmorphone 2 MG/ML, 1ML IVPush PRN (16:30)
[2020-04-12 16:55] VITALS: BP 122/69
== END 2020-04-12 16:57 | disposition home or self-care (01) ==
LOC: ED 13:09
DX: R10.31 Right lower quadrant pain (principal); G43.909 Migraine, unspecified, not intractable, without status migrainosus; Z86.718 Personal history of other venous thrombosis and embolism; Z90.49 Acquired absence of other specified parts of digestive tract
CPT/HCPCS: 36415; 74177; 76830; 80048; 81003; 82040; 84703; 85025; 96374; 96375; 96376; 99285; J1170; J2270; J2405; Q9967

== ENCOUNTER 2020-04-13 14:18 | Emergency (ER) | payer MEDICAID ==
[~2020-04-13] VITALS: Ht 170.2 cm; Wt 118.1 kg
[2020-04-13 14:22] VITALS: BP 118/76
--- NOTE | 2020-04-13 15:08 | NUR ---
PT REPORTS A GRAND MAL SEIZURE THIS MORNING. STATES SHE IS ALMOST 2 WEEKS POST OP FROM A LEFT OOPHORECTOMY DUE TO AN OVARIAN TORSION, AND HER SEIZURE HAS CAUSED HER INCREASED PAIN THROUGH THE ABDOMEN. ALSO STATES SHE HAS BEEN WITHOUT HER RESCUE ATIVAN FOR THE PAST MONTH AND A HALF, BUT HAS AN APPOINTMENT WITH A NEW PCP THE FIRST WEEK OF MAY. CALL LIGHT IN REACH.
[2020-04-13] MEDS ORDERED: OXYcodone/APAP 10/325MG TABLET PO ONE (16:00)
[2020-04-13] MEDS ORDERED: OXYcodone/APAP 10/325MG TABLET ONE (16:06)
[2020-04-13 16:11] LABS: BASOPHILS # (AUTO) 0.12 x10^3/uL (0-0.1); BASOPHILS % (AUTO) 1 % (0-1); EOSINOPHILS # (AUTO) 0.09 x10^3/uL (0-0.4); EOSINOPHILS % (AUTO) 1 % (1-7); LYMPHOCYTES # (AUTO) 2.91 x10^3/uL (1-3.4); LYMPHOCYTES % (AUTO) 30 % (22-44); MD NO; MEAN CORPUSCULAR HEMOGLOBIN 31.4 pg (27.0-34.8); MEAN CORPUSCULAR HGB CONC 33.9 g/dL (32.4-35.8); MEAN CORPUSCULAR VOLUME 92.7 fL (80-100); MEAN PLATELET VOLUME 7.9 fL (7.4-10.4); MONOCYTES % (AUTO) 6 % (2-9); NEUTROPHILS # (AUTO) 5.94 x10^3/uL (1.8-6.8); NEUTROPHILS % (AUTO) 61 % (42-75); PLATELET COUNT 285 x10^3/uL (130-400); RED BLOOD COUNT 4.25 x10^6/uL (3.82-5.3); RED CELL DISTRIBUTION WIDTH 14.2 % (9.6-15.2)
[2020-04-13 16:13] LABS: ANION GAP 6 mmol/L (5-15); CALCIUM 8.7 mg/dL (8.5-10.1); CHLORIDE 104 mmol/L (98-107)
[2020-04-13 16:17] LABS: CREATININE 0.58 mg/dL (0.55-1.02)
--- NOTE | 2020-04-13 16:41 | NUR ---
PT AMBULATED TO RESTROOM, NO ASSISTANCE NECESSARY. RETURNED TO BED. DENIES ANY NEEDS OR CONCERNS AT THIS TIME, CALL LIGHT IN REACH.
[2020-04-13] MEDS ORDERED: DICYCLOMINE 10 MG/ML, 2ML ONE (17:40)
[2020-04-13] MEDS ORDERED: DICYCLOMINE 10 MG/ML, 2ML IM ONE (18:00)
== END 2020-04-13 18:47 | disposition home or self-care (01) ==
LOC: ED 14:56
DX: G40.309 Generalized idiopathic epilepsy and epileptic syndromes, not intractable, without status epilepticus (principal); G89.29 Other chronic pain; R10.84 Generalized abdominal pain; R55 Syncope and collapse; Z86.718 Personal history of other venous thrombosis and embolism; Z90.89 Acquired absence of other organs; Z90.49 Acquired absence of other specified parts of digestive tract; Z90.721 Acquired absence of ovaries, unilateral; Z88.8 Allergy status to other drugs, medicaments and biological substances; Z88.2 Allergy status to sulfonamides; Z88.1 Allergy status to other antibiotic agents; Z88.0 Allergy status to penicillin; Z88.5 Allergy status to narcotic agent
CPT/HCPCS: 36415; 80048; 80164; 85025; 96372; 99283; J0500

== ENCOUNTER 2020-04-14 15:42 | Emergency (ER) | payer MEDICAID ==
[~2020-04-14] VITALS: Ht 170.2 cm; Wt 115.7 kg
--- NOTE | 2020-04-14 16:06 | NUR ---
PT STATES THAT SHE HAD 2-3 SEIZURES TODAY LASTING 1-2 MIN EACH. PT HAS HX OF SEIZURES AND TAKES MEDICATION FOR IT. PT STATES SHE DOES NOT KNOW WHY SHE HAS BEGUN HAVING SEIZURES AGAIN. PT PLACED ON ACQUISITION CONSULTANT AND SEIZURE PADS SECURED TO BED. PT AOX4, ABLE TO MOVE ALL EXTREMITIES. WILL CONTINUE TO MONITOR PT.
[2020-04-14] MEDS ORDERED: LORazepam 1MG TABLET PO ONE (17:30)
[2020-04-14] MEDS ORDERED: LORazepam 1MG TABLET ONE (17:32)
[2020-04-14 17:56] LABS: MEAN CORPUSCULAR HEMOGLOBIN 30.7 pg (27.0-34.8); MEAN CORPUSCULAR HGB CONC 33.3 g/dL (32.4-35.8); MEAN CORPUSCULAR VOLUME 92.2 fL (80-100); MEAN PLATELET VOLUME 7.9 fL (7.4-10.4); PLATELET COUNT 300 x10^3/uL (130-400); RED BLOOD COUNT 4.62 x10^6/uL (3.82-5.3); RED CELL DISTRIBUTION WIDTH 13.7 % (9.6-15.2)
--- NOTE | 2020-04-14 17:56 | NUR ---
CIGAR PATCHER: NEURO DR. NEWTON PAGED PER DR. ROPER REQUEST AT THIS TIME
[2020-04-14 18:15] LABS: BASOPHILS # (AUTO) 0.07 x10^3/uL (0-0.1); BASOPHILS % (AUTO) 1 % (0-1); EOSINOPHILS # (AUTO) 0.01 x10^3/uL (0-0.4); EOSINOPHILS % (AUTO) 0 % (1-7); LYMPHOCYTES # (AUTO) 2.12 x10^3/uL (1-3.4); LYMPHOCYTES % (AUTO) 15 % (22-44); MD SCAN; MONOCYTES # (AUTO) 0.46 x10^3/uL (0.2-0.8); MONOCYTES % (AUTO) 3 % (2-9); NEUTROPHILS # (AUTO) 11.42 x10^3/uL (1.8-6.8); NEUTROPHILS % (AUTO) 81 % (42-75)
[2020-04-14 18:24] LABS: ALBUMIN 3.2 g/dL (3.4-5.0); ANION GAP 9 mmol/L (5-15); CALCIUM 8.8 mg/dL (8.5-10.1); CHLORIDE 109 mmol/L (98-107); CREATININE 0.66 mg/dL (0.55-1.02)
[2020-04-14 18:44] VITALS: BP 118/79
== END 2020-04-14 18:52 | disposition home or self-care (01) ==
LOC: ED 16:30
DX: G40.309 Generalized idiopathic epilepsy and epileptic syndromes, not intractable, without status epilepticus (principal); G89.29 Other chronic pain; R10.9 Unspecified abdominal pain; Z86.718 Personal history of other venous thrombosis and embolism
CPT/HCPCS: 36415; 80048; 80164; 82040; 85025; 99283

== ENCOUNTER 2020-04-16 21:26 | Emergency (ER) | payer MEDICAID ==
[2020-04-16] MEDS ORDERED: DIVA500T2 PO (21:48)
[2020-04-16] MEDS ORDERED: LORA-446 PO (21:49)
[2020-04-16 21:50] VITALS: BP 106/71
--- NOTE | 2020-04-16 21:50 | NUR ---
pt resting on [place], monitors in place, siderails up x2, call light within reach
--- NOTE | 2020-04-16 21:55 | NUR ---
pt up to rr with steady gait, pt requesting this rn to check if erp put pain medication orders in yet. pt notified that i will keep her updated regarding her orders, pt verbalized understanding
--- NOTE | 2020-04-16 22:08 | NUR ---
erp at pt's bedside
== END 2020-04-16 22:17 | disposition home or self-care (01) ==
LOC: ED 21:28
DX: G89.11 Acute pain due to trauma (principal); R10.31 Right lower quadrant pain; G89.29 Other chronic pain; G43.909 Migraine, unspecified, not intractable, without status migrainosus; G40.909 Epilepsy, unspecified, not intractable, without status epilepticus; Z90.49 Acquired absence of other specified parts of digestive tract; Z90.89 Acquired absence of other organs; Z90.722 Acquired absence of ovaries, bilateral; Z86.718 Personal history of other venous thrombosis and embolism
CPT/HCPCS: 99281; 99283

== ENCOUNTER 2020-04-27 20:17 | Emergency (ER) | payer MEDICAID ==
[~2020-04-27] VITALS: Ht 170.2 cm; Wt 100.0 kg
[~2020-04-27 20:17] MED LIST changes: +LORA-446 PO
[2020-04-27] MEDS ORDERED: HYDROcodone/APAP 5/325 TABLET ONE (20:44)
--- NOTE | 2020-04-27 20:47 | NUR ---
PT HERE FOR RLQ PAIN SINCE THIS MORNING WITH NAUSEA. PT SPOKE WITH DR RICK AND SHE SAID TO COME TO ER. PT HAS HX OF TORSION. PT PLACED ON MONITOR AND VS STABLE. WILL CONTINUE TO MONITOR PT.
[2020-04-27] MEDS ORDERED: HYDROcodone/APAP 5/325 TABLET PO ONE (21:00)
[2020-04-27 21:06] LABS: HCG UR SG 1.029 (1.003-1.030)
[2020-04-27] MEDS ORDERED: DICYCLOMINE 10 MG/ML, 2ML IM ONE (22:00)
--- NOTE | 2020-04-27 22:09 | NUR ---
US DELAY-PT TEARFUL AND REQUESTING PAIN MEDS BEFORE HAVING ULTRASOUND DONE.
--- NOTE | 2020-04-27 22:27 | NUR ---
MD AT BEDSIDE TO DISCUSS POC WITH PT, PT AGREES TO US AT THIS TIME
[2020-04-27 22:29] VITALS: BP 127/73
--- NOTE | 2020-04-27 22:31 | NUR ---
PT STATES "I'M ONLY HERE FOR PAIN CONTROL, YOU NEED TO CALL MY DOCTOR, I'M NOT GOING TO FUCKING FROM MORE PAIN MEDICINE, YOU NEED TO CALL THEM THEY WILL GIVE ME MORE", RN AGREED TO ADDRESS WITH MD. US CALLED, THEY WILL COME TO BEDSIDE FOR US AT THIS TIME.
--- NOTE | 2020-04-27 22:48 | NUR ---
PT TO US
--- NOTE | 2020-04-27 22:52 | NUR ---
RECEIVED REPORT FROM HERBIE CASIANO. ASSUMING CARE AT THIS TIME.
--- NOTE | 2020-04-27 23:05 | NUR ---
PT BACK FROM US. ALL RESULTS ARE BACK AT THIS TIME. CHART UP FOR RECHECK.
--- NOTE | 2020-04-27 23:46 | NUR ---
REPORT GIVEN TO NESTOR CASIANO.
--- NOTE | 2020-04-27 23:59 | NUR ---
Discharge instructions given. All questions and concerns addressed. Patient ambulatory with a steady gait. Belongings with patient.
== END 2020-04-28 00:01 | disposition home or self-care (01) ==
LOC: ED 22:09
DX: N83.01 Follicular cyst of right ovary (principal); G89.29 Other chronic pain; G40.909 Epilepsy, unspecified, not intractable, without status epilepticus; Z90.49 Acquired absence of other specified parts of digestive tract; Z90.89 Acquired absence of other organs; Z90.722 Acquired absence of ovaries, bilateral
CPT/HCPCS: 76830; 81025; 99284

== ENCOUNTER 2020-05-02 16:09 | Emergency (ER) | payer MEDICAID ==
[~2020-05-02] VITALS: Ht 175.3 cm; Wt 110.0 kg
[2020-05-02] MEDS ORDERED: MORPHINE SULFATE 4 MG/ML, 1ML ONE ×2 (16:32→18:19)
[2020-05-02] MEDS: MORPHINE SULFATE 4 MG/ML, 1ML IVPush PRN ×2 (16:39→18:24)
[2020-05-02 16:49] LABS: BASOPHILS # (AUTO) 0.03 x10^3/uL (0-0.1); BASOPHILS % (AUTO) 0 % (0-1); EOSINOPHILS # (AUTO) 0.06 x10^3/uL (0-0.4); EOSINOPHILS % (AUTO) 1 % (1-7); LYMPHOCYTES # (AUTO) 2.94 x10^3/uL (1-3.4); LYMPHOCYTES % (AUTO) 27 % (22-44); MD NO; MEAN CORPUSCULAR HEMOGLOBIN 30.8 pg (27.0-34.8); MEAN CORPUSCULAR HGB CONC 33.3 g/dL (32.4-35.8); MEAN CORPUSCULAR VOLUME 92.4 fL (80-100); MEAN PLATELET VOLUME 7.7 fL (7.4-10.4); MONOCYTES # (AUTO) 0.65 x10^3/uL (0.2-0.8); MONOCYTES % (AUTO) 6 % (2-9); NEUTROPHILS # (AUTO) 7.31 x10^3/uL (1.8-6.8); NEUTROPHILS % (AUTO) 67 % (42-75); PLATELET COUNT 250 x10^3/uL (130-400); RED BLOOD COUNT 4.43 x10^6/uL (3.82-5.3)
[2020-05-02 16:51] LABS: MICROSCOPIC NOT IND
[2020-05-02 16:51] LABS: ALANINE AMINOTRANSFERASE 37 U/L (12-78); ALBUMIN 3.3 g/dL (3.4-5.0); ANION GAP 6 mmol/L (5-15); CALCIUM 8.2 mg/dL (8.5-10.1); CHLORIDE 107 mmol/L (98-107)
[2020-05-02 16:56] LABS: ALKALINE PHOSPHATASE 69 U/L (45-117); BILIRUBIN,TOTAL 0.3 mg/dL (0.2-1.0); TOTAL PROTEIN 7.3 g/dL (6.4-8.2)
[2020-05-02 17:32] VITALS: BP 109/58
--- NOTE | 2020-05-02 17:50 | NUR ---
PT RECEIVED FENTANLY SENIOR BI DEVELOPER. PT RECEIVED 4MG OF MORPHINE HERE. PT STILL REQUESTING MORE PAIN MEDS. PROVIDER HAS BEEN NOTIFIED.
--- NOTE | 2020-05-02 17:55 | NUR ---
PT ASKED WHO HER DOCTOR WAS GOING TO BE AND WAS TOLD IT COULD BE DR PILLAI. PT THEN REPLIED "DR PILLAI IS RUDE TO ME AND I WILL REPORT HER AND CALL A CODE H IF SHE STEPS FOOT IN MY ROOM"
[2020-05-03] MEDS ORDERED: ESLI400T PO (20:21)
[2020-05-03] MEDS ORDERED: HYDR-3240 PO (20:21)
== END 2020-05-02 19:04 | disposition home or self-care (01) ==
LOC: ED 17:35
DX: R10.31 Right lower quadrant pain (principal); R10.11 Right upper quadrant pain; R94.31 Abnormal electrocardiogram [ECG] [EKG]; R11.0 Nausea; R56.9 Unspecified convulsions; Z90.721 Acquired absence of ovaries, unilateral; Z90.89 Acquired absence of other organs
CPT/HCPCS: 36415; 80053; 80164; 81003; 83690; 84703; 85025; 93005; 96374; 96376; 99284; J2270

== ENCOUNTER 2020-05-03 20:06 | Emergency (ER) | payer MEDICAID ==
[~2020-05-03] VITALS: Ht 170.2 cm; Wt 95.0 kg
[2020-05-03] MEDS ORDERED: HYDR-3240 PO (20:21)
[2020-05-03] MEDS ORDERED: ESLI400T PO (20:21)
[2020-05-03] MEDS ORDERED: KETAMINE 10 MG/ML, 20ML IV ONE (20:30)
[2020-05-03] MEDS ORDERED: ONDANSETRON ODT 4 MG PO ONE (20:30)
--- NOTE | 2020-05-03 20:44 | NUR ---
IV SITE STARTED, PT UP TO RR WITH STEADY GAIT. PT REQUESTING TO SPEAK TO ERP REGARDING ORDERED MEDICATIONS. ERP UPDATED
[2020-05-03] MEDS ORDERED: ONDANSETRON ODT 4 MG ONE (20:48)
--- NOTE | 2020-05-03 20:50 | NUR ---
pt medicated per mar
--- NOTE | 2020-05-03 21:05 | NUR ---
YELLOW SLIP SENT TO PHARMACY
--- NOTE | 2020-05-03 21:20 | NUR ---
PT REQUESTED PAIN MEDS BEFORE CT.
--- NOTE | 2020-05-03 21:26 | NUR ---
pt medicated for pain
[2020-05-03 21:42] VITALS: BP 128/68
--- NOTE | 2020-05-03 21:43 | NUR ---
pt to ct
--- NOTE | 2020-05-03 22:16 | NUR ---
pt cash on delivery clerk light requesting another dose of pain medication, stated her pain came back. will update erp
--- NOTE | 2020-05-03 22:21 | NUR ---
erp updated regarding pt's pain and requesting more pain medication, erp to see pt
== END 2020-05-03 22:45 | disposition home or self-care (01) ==
LOC: ED 21:17
DX: G40.909 Epilepsy, unspecified, not intractable, without status epilepticus (principal); G89.29 Other chronic pain; M54.5 Low back pain; R10.30 Lower abdominal pain, unspecified; R11.0 Nausea; Z90.89 Acquired absence of other organs; Z90.49 Acquired absence of other specified parts of digestive tract; Z90.721 Acquired absence of ovaries, unilateral; Z86.718 Personal history of other venous thrombosis and embolism
CPT/HCPCS: 74176; 96374; 99284; Q0162

== ENCOUNTER 2020-05-16 17:07 | Emergency (ER) | payer MEDICAID ==
[~2020-05-16] VITALS: Ht 170.2 cm; Wt 117.1 kg
[~2020-05-16 17:07] MED LIST changes: +ESLI400T PO; +HYDR-3240 PO
--- NOTE | 2020-05-16 17:36 | NUR ---
TASK RN: FIRST CONTACT WITH PT. PT REPORTS WORSENING ABD PAIN, R PELVIC RADIATING TO R FLANK. HX OF APPY, OVARIAN TORSION, ENDOMETRIOSIS, AND PCOS. REPORTS PAINFUL URINATION AND SCANT VAGINAL BLEEDING. REPORTS INTERMITTENT ORTHOSTASIS. GROSS NEURO INTACT. LMP: 04/27, A3. PT AMBULATORY WITH STEADY GAIT TO RESTROOM TO PROVIDE UA. BP/SPO2/ECG MONITORING IN PLACE. NSR ON MONITOR. DENIES FEVER/PRODUCTIVE COUGH/CP/N/V. UA COLLECTED AND SENT TO LAB.
[2020-05-16 17:59] LABS: MICROSCOPIC NOT IND
[2020-05-16] MEDS ORDERED: HYDROcodone/APAP 5/325 TABLET ONE ×2 (18:26→20:35)
[2020-05-16] MEDS ORDERED: HYDROcodone/APAP 5/325 TABLET PO ONE ×2 (18:30→21:00)
[2020-05-16 18:46] VITALS: BP 126/76
[2020-05-16 18:51] LABS: BASOPHILS # (AUTO) 0.05 x10^3/uL (0-0.1); BASOPHILS % (AUTO) 1 % (0-1); EOSINOPHILS # (AUTO) 0.11 x10^3/uL (0-0.4); EOSINOPHILS % (AUTO) 1 % (1-7); LYMPHOCYTES # (AUTO) 3.14 x10^3/uL (1-3.4); LYMPHOCYTES % (AUTO) 37 % (22-44); MD NO; MEAN CORPUSCULAR HEMOGLOBIN 30.5 pg (27.0-34.8); MEAN CORPUSCULAR HGB CONC 33.6 g/dL (32.4-35.8); MEAN CORPUSCULAR VOLUME 90.5 fL (80-100); MEAN PLATELET VOLUME 8.1 fL (7.4-10.4); MONOCYTES # (AUTO) 0.61 x10^3/uL (0.2-0.8); MONOCYTES % (AUTO) 7 % (2-9); NEUTROPHILS % (AUTO) 55 % (42-75); PLATELET COUNT 252 x10^3/uL (130-400); RED CELL DISTRIBUTION WIDTH 14.1 % (9.6-15.2)
[2020-05-16 19:02] LABS: ANION GAP 6 mmol/L (5-15); CALCIUM 8.7 mg/dL (8.5-10.1); CHLORIDE 107 mmol/L (98-107)
[2020-05-16 19:04] LABS: CREATININE 0.62 mg/dL (0.55-1.02)
--- NOTE | 2020-05-16 19:21 | NUR ---
report of pt from macario toure and assuming care of pt at this time. pt resting comfortably in [facility] with call light within reach. pt provided with warm blanket at this time.
--- NOTE | 2020-05-16 20:39 | NUR ---
PT MEDICATED PER MAR FOR PAIN.
[2020-05-17] MEDS ORDERED: LORA-445 PO (19:49)
== END 2020-05-16 20:43 ==
LOC: ED 20:15
DX: N83.291 Other ovarian cyst, right side (principal); R10.30 Lower abdominal pain, unspecified; R42 Dizziness and giddiness; G40.909 Epilepsy, unspecified, not intractable, without status epilepticus; Z86.718 Personal history of other venous thrombosis and embolism; Z90.89 Acquired absence of other organs; Z90.49 Acquired absence of other specified parts of digestive tract; Z90.721 Acquired absence of ovaries, unilateral
CPT/HCPCS: 36415; 76830; 80048; 80164; 81003; 81025; 82962; 85025; 99284

== ENCOUNTER 2020-05-17 19:19 | Emergency (ER) | payer MEDICAID ==
[~2020-05-17] VITALS: Ht 170.2 cm; Wt 117.0 kg
[2020-05-17] MEDS ORDERED: LORA-445 PO (19:49)
--- NOTE | 2020-05-17 19:49 | NUR ---
PT RESTING ON GURNEY, PROVIDED PT WITH WARM BLANKET, MONIOTRS APPLIED, SIDERAILS UP X2, CALL LIGHT WITHIN REACH. AWAITING ERP EVAL AND ORDERS
[2020-05-17] MEDS ORDERED: HYDROcodone/APAP 5/325 TABLET PO STA (20:02)
[2020-05-17] MEDS ORDERED: ONDANSETRON ODT 4 MG ONE (20:08)
[2020-05-17] MEDS ORDERED: HYDROcodone/APAP 5/325 TABLET ONE ×2 (20:08→20:59)
[2020-05-17] MEDS ORDERED: ONDANSETRON ODT 4 MG PO ONE (20:30)
[2020-05-17 20:36] LABS: BASOPHILS # (AUTO) 0.04 x10^3/uL (0-0.1); BASOPHILS % (AUTO) 0 % (0-1); EOSINOPHILS # (AUTO) 0.06 x10^3/uL (0-0.4); EOSINOPHILS % (AUTO) 1 % (1-7); LYMPHOCYTES % (AUTO) 26 % (22-44); MD NO; MEAN CORPUSCULAR HGB CONC 33.2 g/dL (32.4-35.8); MEAN CORPUSCULAR VOLUME 90.5 fL (80-100); MEAN PLATELET VOLUME 7.9 fL (7.4-10.4); MONOCYTES % (AUTO) 5 % (2-9); NEUTROPHILS # (AUTO) 7.13 x10^3/uL (1.8-6.8); NEUTROPHILS % (AUTO) 68 % (42-75); PLATELET COUNT 306 x10^3/uL (130-400); RED BLOOD COUNT 4.73 x10^6/uL (3.82-5.3); RED CELL DISTRIBUTION WIDTH 13.7 % (9.6-15.2)
[2020-05-17 20:43] LABS: ALBUMIN 3.3 g/dL (3.4-5.0); ANION GAP 7 mmol/L (5-15); CHLORIDE 105 mmol/L (98-107)
[2020-05-17 20:47] LABS: ALANINE AMINOTRANSFERASE 34 U/L (12-78); ALKALINE PHOSPHATASE 84 U/L (45-117); BILIRUBIN,TOTAL 0.4 mg/dL (0.2-1.0); CREATININE 0.66 mg/dL (0.55-1.02); TOTAL PROTEIN 8.1 g/dL (6.4-8.2)
--- NOTE | 2020-05-17 21:01 | NUR ---
pt resquesting more pain medication, erp updated and will place medication order
[2020-05-17 21:04] LABS: MICROSCOPIC NOT IND
[2020-05-17] MEDS ORDERED: HYDROcodone/APAP 5/325 TABLET PO ONE (21:30)
--- NOTE | 2020-05-17 21:30 | NUR ---
pt to ultrasound
--- NOTE | 2020-05-17 21:47 | NUR ---
pt blood bank laboratory professional light requesting more pain medication, stated " my abdomen pain came back". erp updated and will review pt's chart
[2020-05-17 21:52] VITALS: BP 112/56
== END 2020-05-17 22:31 | disposition home or self-care (01) ==
LOC: ED 21:41
DX: N83.291 Other ovarian cyst, right side (principal); G43.909 Migraine, unspecified, not intractable, without status migrainosus; R11.2 Nausea with vomiting, unspecified; R10.31 Right lower quadrant pain; Z86.718 Personal history of other venous thrombosis and embolism
CPT/HCPCS: 36415; 76830; 80053; 81003; 85025; 99284; Q0162

== ENCOUNTER 2020-05-20 13:16 | Emergency (ER) | payer MEDICAID ==
[~2020-05-20] VITALS: Ht 170.2 cm; Wt 115.5 kg
[~2020-05-20 13:16] MED LIST changes: +LORA-445 PO
--- NOTE | 2020-05-20 13:54 | NUR ---
First contact with pt. Pt c/o RLQ abd pain starting at noon. Pt c/o large amount VB starting then as well. Pt states she has been changing her tampons 3/hr. [facility]
--- NOTE | 2020-05-20 13:55 | NUR ---
Alberto SOLOMON at bedside to evaluate pt.
--- NOTE | 2020-05-20 13:58 | NUR ---
Pt requesting pain medication. Alberto SOLOMON made aware of this. Pt provided warm blanket to apply to abd. Awaiting further orders.
[2020-05-20 14:24] LABS: ALANINE AMINOTRANSFERASE 36 U/L (12-78); ALBUMIN 3.1 g/dL (3.4-5.0); ANION GAP 10 mmol/L (5-15); CALCIUM 8.7 mg/dL (8.5-10.1); CHLORIDE 106 mmol/L (98-107)
[2020-05-20 14:28] LABS: ALKALINE PHOSPHATASE 78 U/L (45-117); BILIRUBIN,TOTAL 0.4 mg/dL (0.2-1.0); TOTAL PROTEIN 7.7 g/dL (6.4-8.2)
[2020-05-20 14:40] LABS: BASOPHILS # (AUTO) 0.03 x10^3/uL (0-0.1); BASOPHILS % (AUTO) 0 % (0-1); EOSINOPHILS # (AUTO) 0.01 x10^3/uL (0-0.4); EOSINOPHILS % (AUTO) 0 % (1-7); LYMPHOCYTES % (AUTO) 12 % (22-44); MD NO; MEAN CORPUSCULAR HEMOGLOBIN 29.9 pg (27.0-34.8); MEAN CORPUSCULAR VOLUME 90.7 fL (80-100); MEAN PLATELET VOLUME 7.6 fL (7.4-10.4); MONOCYTES # (AUTO) 0.43 x10^3/uL (0.2-0.8); MONOCYTES % (AUTO) 3 % (2-9); NEUTROPHILS # (AUTO) 10.57 x10^3/uL (1.8-6.8); NEUTROPHILS % (AUTO) 84 % (42-75); PLATELET COUNT 324 x10^3/uL (130-400); RED BLOOD COUNT 4.71 x10^6/uL (3.82-5.3); RED CELL DISTRIBUTION WIDTH 14.3 % (9.6-15.2)
--- NOTE | 2020-05-20 14:40 | NUR ---
Pt in US currently.
--- NOTE | 2020-05-20 14:56 | NUR ---
Pt back from US, c/o continued RLQ pain. Pt requesting pain medication. Alberto SOLOMON made aware. Awaiting further orders.
[2020-05-20] MEDS ORDERED: KETAMINE 10 MG/ML, 20ML IV ONE (16:00)
[2020-05-20] MEDS ORDERED: KETAMINE 10 MG/ML, 20ML ONE (16:10)
--- NOTE | 2020-05-20 16:25 | NUR ---
Pt medicated for pain per MAR. Pt resting in bed, denies other needs.
[2020-05-20 16:52] VITALS: BP 122/74
--- NOTE | 2020-05-20 16:52 | NUR ---
Pt states pain improved after Ketamine, 5/10.
== END 2020-05-20 16:54 | disposition home or self-care (01) ==
LOC: ED 14:12
DX: E28.2 Polycystic ovarian syndrome (principal); Z90.721 Acquired absence of ovaries, unilateral; Z86.718 Personal history of other venous thrombosis and embolism; Z90.49 Acquired absence of other specified parts of digestive tract; Z90.710 Acquired absence of both cervix and uterus
CPT/HCPCS: 36415; 76830; 80053; 84703; 85025; 96374; 99284

== ENCOUNTER → 2020-07-17 | Outpatient (CLI) | payer MEDICAID ==
[~2020-07-17] MED LIST changes: +GADOTERATE 10 MMOL/20 ML SYR ONE; +MIDAZOLAM 1 MG/ML, 5ML ONE
== END | disposition home or self-care (01) ==
LOC: RAD 12:39
PROVIDERS: ATTEND Psychiatry & Neurology Neurology
DX: G40.219 Localization-related (focal) (partial) symptomatic epilepsy and epileptic syndromes with complex partial seizures, intractable, without status epilepticus (principal); Z88.0 Allergy status to penicillin; Z88.8 Allergy status to other drugs, medicaments and biological substances
CPT/HCPCS: 70553; 99156; 99157; A9575; J2250

== ENCOUNTER 2020-07-25 13:35 | Emergency (ER) | payer MEDICAID ==
[~2020-07-25] VITALS: Ht 170.2 cm; Wt 114.0 kg
[~2020-07-25 13:35] MED LIST changes: -GADOTERATE 10 MMOL/20 ML SYR ONE; -MIDAZOLAM 1 MG/ML, 5ML ONE
[2020-07-25] MEDS ORDERED: MORPHINE SULFATE 4 MG/ML, 1ML ONE ×2 (13:51→14:43)
[2020-07-25] MEDS ORDERED: ONDANSETRON 2MG/ML, 2ML ONE (13:51)
[2020-07-25] MEDS ORDERED: SODIUM CHLORIDE FLUSH 10ML SYR IVF ONE (14:00)
[2020-07-25] MEDS ORDERED: SODIUM CHLORIDE 0.9% 1,000ML IVBOLUS ONE (14:00)
[2020-07-25] MEDS ORDERED: ONDANSETRON 2MG/ML, 2ML IVPush ONE (14:00)
[2020-07-25] MEDS: MORPHINE SULFATE 4 MG/ML, 1ML IVPush PRN ×2 (14:10→14:50)
[2020-07-25 14:14] LABS: BASOPHILS # (AUTO) 0.06 x10^3/uL (0-0.1); BASOPHILS % (AUTO) 1 % (0-1); EOSINOPHILS # (AUTO) 0.04 x10^3/uL (0-0.4); EOSINOPHILS % (AUTO) 0 % (1-7); LYMPHOCYTES # (AUTO) 2.01 x10^3/uL (1-3.4); LYMPHOCYTES % (AUTO) 18 % (22-44); MD NO; MEAN CORPUSCULAR HEMOGLOBIN 29.2 pg (27.0-34.8); MEAN CORPUSCULAR VOLUME 88.4 fL (80-100); MEAN PLATELET VOLUME 7.9 fL (7.4-10.4); MONOCYTES # (AUTO) 0.59 x10^3/uL (0.2-0.8); MONOCYTES % (AUTO) 5 % (2-9); NEUTROPHILS # (AUTO) 8.62 x10^3/uL (1.8-6.8); NEUTROPHILS % (AUTO) 76 % (42-75); PLATELET COUNT 245 x10^3/uL (130-400); RED BLOOD COUNT 5.05 x10^6/uL (3.82-5.3); RED CELL DISTRIBUTION WIDTH 14.3 % (9.6-15.2)
--- NOTE | 2020-07-25 14:15 | NUR ---
PT CO OF RLQ PAIN THAT RADIATES TO RIGHT FLANK. HX OF TORSIONS Piv placed-medicated per emar Updated on estimated poc
[2020-07-25 14:23] LABS: ALANINE AMINOTRANSFERASE 65 U/L (12-78); ALBUMIN 3.3 g/dL (3.4-5.0); ANION GAP 7 mmol/L (5-15); CALCIUM 8.8 mg/dL (8.5-10.1); CHLORIDE 108 mmol/L (98-107); CREATININE 0.66 mg/dL (0.55-1.02)
[2020-07-25 14:27] LABS: ALKALINE PHOSPHATASE 77 U/L (45-117); BILIRUBIN,TOTAL 0.4 mg/dL (0.2-1.0); TOTAL PROTEIN 8.2 g/dL (6.4-8.2)
[2020-07-25 14:47] LABS: MICROSCOPIC INDICATED
[2020-07-25 14:52] VITALS: BP 113/64
== END 2020-07-25 15:40 | disposition home or self-care (01) ==
LOC: ED 15:20
DX: N30.00 Acute cystitis without hematuria (principal); R11.0 Nausea; R10.2 Pelvic and perineal pain; G40.909 Epilepsy, unspecified, not intractable, without status epilepticus; G43.909 Migraine, unspecified, not intractable, without status migrainosus; F17.200 Nicotine dependence, unspecified, uncomplicated; Z90.89 Acquired absence of other organs; Z90.49 Acquired absence of other specified parts of digestive tract; Z86.718 Personal history of other venous thrombosis and embolism; Z90.721 Acquired absence of ovaries, unilateral
CPT/HCPCS: 36415; 76830; 80053; 81001; 83690; 84703; 85025; 87086; 96361; 96374; 96375; 96376; 99284; J2270; J2405; J7030

== ENCOUNTER 2020-08-02 15:48 | Emergency (ER) | payer MEDICAID ==
[~2020-08-02] VITALS: Ht 170.2 cm; Wt 113.3 kg
--- NOTE | 2020-08-02 16:45 | NUR ---
GUN STOCKER: PT TO ROOM FROM LOBBY
[2020-08-02 17:16] LABS: MICROSCOPIC NOT IND
[2020-08-02] MEDS ORDERED: MORPHINE SULFATE 4 MG/ML, 1ML ONE ×2 (17:53→19:03)
[2020-08-02] MEDS ORDERED: ONDANSETRON 2MG/ML, 2ML ONE (17:53)
[2020-08-02] MEDS ORDERED: ONDANSETRON 2MG/ML, 2ML IVPush ONE (18:00)
[2020-08-02 18:07] LABS: BASOPHILS # (AUTO) 0.04 x10^3/uL (0-0.1); BASOPHILS % (AUTO) 1 % (0-1); EOSINOPHILS # (AUTO) 0.12 x10^3/uL (0-0.4); EOSINOPHILS % (AUTO) 1 % (1-7); LYMPHOCYTES # (AUTO) 2.66 x10^3/uL (1-3.4); LYMPHOCYTES % (AUTO) 32 % (22-44); MD NO; MEAN CORPUSCULAR HEMOGLOBIN 29.4 pg (27.0-34.8); MEAN CORPUSCULAR HGB CONC 33.2 g/dL (32.4-35.8); MEAN CORPUSCULAR VOLUME 88.5 fL (80-100); MEAN PLATELET VOLUME 8.4 fL (7.4-10.4); MONOCYTES # (AUTO) 0.74 x10^3/uL (0.2-0.8); MONOCYTES % (AUTO) 9 % (2-9); NEUTROPHILS # (AUTO) 4.79 x10^3/uL (1.8-6.8); NEUTROPHILS % (AUTO) 57 % (42-75); PLATELET COUNT 227 x10^3/uL (130-400); RED BLOOD COUNT 4.89 x10^6/uL (3.82-5.3); RED CELL DISTRIBUTION WIDTH 14.7 % (9.6-15.2)
[2020-08-02 18:13] LABS: ALANINE AMINOTRANSFERASE 50 U/L (12-78); ALBUMIN 3.3 g/dL (3.4-5.0); ANION GAP 6 mmol/L (5-15); CHLORIDE 110 mmol/L (98-107); CREATININE 0.62 mg/dL (0.55-1.02)
[2020-08-02 18:20] LABS: ALKALINE PHOSPHATASE 78 U/L (45-117); BILIRUBIN,TOTAL 0.4 mg/dL (0.2-1.0); TOTAL PROTEIN 7.4 g/dL (6.4-8.2)
[2020-08-02] MEDS: MORPHINE SULFATE 4 MG/ML, 1ML IVPush PRN ×2 (18:32→19:08)
--- NOTE | 2020-08-02 19:10 | NUR ---
PT STATED "SHE WS STILL IN PAIN AND REQUESTED A PAIN MED, PT MEDICATED PER EMAR"
[2020-08-02 19:11] VITALS: BP 106/76
== END 2020-08-02 19:18 | disposition home or self-care (01) ==
LOC: ED 16:57
DX: S39.011A Strain of muscle, fascia and tendon of abdomen, initial encounter (principal); R10.31 Right lower quadrant pain; R11.10 Vomiting, unspecified; R19.7 Diarrhea, unspecified; Z90.49 Acquired absence of other specified parts of digestive tract; Z90.89 Acquired absence of other organs; Z90.721 Acquired absence of ovaries, unilateral; X58.XXXA Exposure to other specified factors, initial encounter; Y93.89 Activity, other specified; Y92.89 Other specified places as the place of occurrence of the external cause; Y99.8 Other external cause status
CPT/HCPCS: 36415; 80053; 81003; 83690; 84703; 85025; 96374; 96375; 96376; 99284; J2270; J2405

== ENCOUNTER 2020-08-03 15:29 | Emergency (ER) | payer MEDICAID ==
[~2020-08-03] VITALS: Ht 170.2 cm; Wt 112.7 kg
[2020-08-03] MEDS ORDERED: SODIUM CHLORIDE FLUSH 10ML SYR IVF ONE (16:30)
[2020-08-03] MEDS ORDERED: ONDANSETRON 2MG/ML, 2ML IVPush ONE (16:30)
[2020-08-03] MEDS ORDERED: MORPHINE SULFATE 4 MG/ML, 1ML ONE ×2 (16:36→17:37)
[2020-08-03] MEDS ORDERED: ONDANSETRON 2MG/ML, 2ML ONE (16:36)
[2020-08-03] MEDS: MORPHINE SULFATE 4 MG/ML, 1ML IVPush PRN ×2 (16:54→17:38)
--- NOTE | 2020-08-03 16:57 | NUR ---
PIV PLACED, LABS DRAWN AND SENT TO LAB WITH LAB STICKER. MEDS ADMIN PER JAN. PT TO US.
[2020-08-03 17:06] LABS: BASOPHILS # (AUTO) 0.04 x10^3/uL (0-0.1); BASOPHILS % (AUTO) 1 % (0-1); EOSINOPHILS # (AUTO) 0.08 x10^3/uL (0-0.4); EOSINOPHILS % (AUTO) 1 % (1-7); LYMPHOCYTES # (AUTO) 2.62 x10^3/uL (1-3.4); LYMPHOCYTES % (AUTO) 34 % (22-44); MD NO; MEAN CORPUSCULAR HEMOGLOBIN 29.1 pg (27.0-34.8); MEAN CORPUSCULAR HGB CONC 32.5 g/dL (32.4-35.8); MEAN CORPUSCULAR VOLUME 89.5 fL (80-100); MEAN PLATELET VOLUME 8.5 fL (7.4-10.4); MONOCYTES # (AUTO) 0.56 x10^3/uL (0.2-0.8); MONOCYTES % (AUTO) 7 % (2-9); NEUTROPHILS # (AUTO) 4.49 x10^3/uL (1.8-6.8); NEUTROPHILS % (AUTO) 58 % (42-75); PLATELET COUNT 232 x10^3/uL (130-400); RED BLOOD COUNT 5.26 x10^6/uL (3.82-5.3); RED CELL DISTRIBUTION WIDTH 14.8 % (9.6-15.2)
[2020-08-03 17:17] LABS: ALBUMIN 3.5 g/dL (3.4-5.0); ANION GAP 8 mmol/L (5-15); CALCIUM 9.3 mg/dL (8.5-10.1); CHLORIDE 107 mmol/L (98-107)
[2020-08-03 17:21] LABS: ALANINE AMINOTRANSFERASE 52 U/L (12-78); ALKALINE PHOSPHATASE 88 U/L (45-117); BILIRUBIN,TOTAL 0.4 mg/dL (0.2-1.0); CREATININE 0.65 mg/dL (0.55-1.02); TOTAL PROTEIN 8.2 g/dL (6.4-8.2)
[2020-08-03 17:42] VITALS: BP 110/68
--- NOTE | 2020-08-03 17:43 | NUR ---
PT BACK FROM US. PT MEDICATED WITH SECOND DOSE MORPHINE FOR PAIN.
--- NOTE | 2020-08-03 17:44 | NUR ---
ALL RESULTS ARE BACK AT THIS TIME. CHART UP FOR RECHECK.
== END 2020-08-03 19:16 | disposition home or self-care (01) ==
LOC: ED 17:29
DX: S39.011A Strain of muscle, fascia and tendon of abdomen, initial encounter (principal); X58.XXXA Exposure to other specified factors, initial encounter; Y93.89 Activity, other specified; Y92.89 Other specified places as the place of occurrence of the external cause; Y99.8 Other external cause status
CPT/HCPCS: 36415; 76830; 80053; 83690; 85025; 96374; 96375; 96376; 99284; J2270; J2405

== ENCOUNTER 2020-09-11 18:15 | Emergency (ER) | payer MEDICAID ==
[~2020-09-11] VITALS: Ht 170.2 cm; Wt 112.4 kg
[2020-09-11] MEDS ORDERED: ONDANSETRON 2MG/ML, 2ML IVPush ONE (19:00)
[2020-09-11] MEDS ORDERED: ONDANSETRON 2MG/ML, 2ML ONE (19:19)
[2020-09-11] MEDS ORDERED: MORPHINE SULFATE 4 MG/ML, 1ML ONE ×3 (19:19→21:19)
[2020-09-11] MEDS: MORPHINE SULFATE 4 MG/ML, 1ML IVPush PRN ×2 (19:42→20:40)
--- NOTE | 2020-09-11 19:42 | NUR ---
TASK RN: IV STARTED. MEDICATED PER JAN. CALLED US TO COME.
[2020-09-11 20:13] LABS: BASOPHILS % (AUTO) 0 % (0-1); EOSINOPHILS % (AUTO) 1 % (1-7); LYMPHOCYTES % (AUTO) 34 % (22-44); MEAN CORPUSCULAR HEMOGLOBIN 29.2 pg (27.0-34.8); MEAN CORPUSCULAR HGB CONC 33.1 g/dL (32.4-35.8); MONOCYTES % (AUTO) 9 % (2-9); NEUTROPHILS % (AUTO) 56 % (42-75); PLATELET COUNT 249 x10^3/uL (130-400); RED BLOOD COUNT 4.59 x10^6/uL (3.82-5.3); RED CELL DISTRIBUTION WIDTH 14.7 % (9.6-15.2)
[2020-09-11 20:15] LABS: ALBUMIN 3.1 g/dL (3.4-5.0); ANION GAP 4 mmol/L (5-15); CALCIUM 9.1 mg/dL (8.5-10.1); CHLORIDE 104 mmol/L (98-107); MD NO
[2020-09-11 20:20] LABS: MICROSCOPIC AUTO
[2020-09-11 20:21] LABS: CREATININE 0.59 mg/dL (0.55-1.02)
[2020-09-11] MEDS ORDERED: MORPHINE SULFATE 4 MG/ML, 1ML IVPush ONE (21:30)
[2020-09-11 21:32] VITALS: BP 108/70
== END 2020-09-11 22:25 | disposition home or self-care (01) ==
LOC: ED 19:40
DX: N83.201 Unspecified ovarian cyst, right side (principal); Z86.718 Personal history of other venous thrombosis and embolism; Z90.49 Acquired absence of other specified parts of digestive tract; Z90.721 Acquired absence of ovaries, unilateral
CPT/HCPCS: 36415; 76830; 80048; 81001; 82040; 84703; 85025; 87086; 96374; 96375; 96376; 99284; J2270; J2405

== ENCOUNTER 2020-09-13 12:08 | Emergency (ER) | payer MEDICAID ==
[~2020-09-13] VITALS: Ht 170.2 cm; Wt 113.9 kg
--- NOTE | 2020-09-13 12:32 | NUR ---
RLOWER ABD PAIN, HX OF TORSION WITH LOSS OF LEFT OVARY. REPORTS PAIN TO RIGHT SIDE WORSE TODAY. 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 PT LAST ATE 4AM. ERP AT BEDSIDE. Addendum: 09/13/20 at 1235 by LLEEMargot REQUESTED URINE SAMPLE, PT AMBULATES TO BR WITH NO DIFFICULTIES.
[2020-09-13] MEDS ORDERED: ONDANSETRON ODT 8 MG ONE (12:44)
[2020-09-13] MEDS ORDERED: HYDROmorphone 2 MG/ML, 1ML ONE (12:45)
--- NOTE | 2020-09-13 12:51 | NUR ---
MEDICATED PER ORDER, PT UP WALKING AROUND REQUESTING PHONE. STEADY GAIT. NAD.
[2020-09-13] MEDS ORDERED: HYDROmorphone 1 MG/ML, 1ML INJ IM ONE (13:00)
[2020-09-13] MEDS ORDERED: ONDANSETRON ODT 8 MG PO ONE (13:00)
--- NOTE | 2020-09-13 13:12 | NUR ---
PT TO ULTRASOUND.
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
[2020-09-13 13:41] VITALS: BP 124/77
[2020-09-13] MEDS ORDERED: OXYcodone/APAP 5/325MG TABLET PO ONE (14:00)
[2020-09-13] MEDS ORDERED: OXYcodone/APAP 5/325MG TABLET ONE (14:03)
--- NOTE | 2020-09-13 14:07 | NUR ---
MEDICATED PER ORDER X2 PERCOCET. PT TEARFUL, HAS FRIEND COMING TO PICK HER UP. SHE WILL FU WITH HER PCP.
== END 2020-09-13 14:21 | disposition home or self-care (01) ==
LOC: ED 12:33
DX: N83.291 Other ovarian cyst, right side (principal); G89.29 Other chronic pain; R10.31 Right lower quadrant pain; R11.0 Nausea
CPT/HCPCS: 76830; 96372; 99284; J1170; Q0162

== ENCOUNTER 2020-09-16 18:49 | Emergency (ER) | payer MEDICAID ==
[~2020-09-16] VITALS: Ht 170.2 cm; Wt 108.5 kg
[2020-09-16] MEDS ORDERED: MORPHINE SULFATE 4 MG/ML, 1ML IVPush ONE ×2 (19:30→21:00)
[2020-09-16] MEDS ORDERED: ONDANSETRON 2MG/ML, 2ML IVPush ONE (19:30)
[2020-09-16] MEDS ORDERED: MORPHINE SULFATE 4 MG/ML, 1ML ONE ×2 (19:34→20:51)
[2020-09-16] MEDS ORDERED: ONDANSETRON 2MG/ML, 2ML ONE (19:34)
[2020-09-16 19:58] LABS: ALBUMIN 3.4 g/dL (3.4-5.0); ANION GAP 7 mmol/L (5-15); BASOPHILS % (AUTO) 1 % (0-1); CALCIUM 9.1 mg/dL (8.5-10.1); CHLORIDE 108 mmol/L (98-107); EOSINOPHILS % (AUTO) 0 % (1-7); LYMPHOCYTES % (AUTO) 32 % (22-44); MEAN CORPUSCULAR HEMOGLOBIN 28.8 pg (27.0-34.8); MEAN PLATELET VOLUME 7.9 fL (7.4-10.4); MONOCYTES % (AUTO) 7 % (2-9); NEUTROPHILS % (AUTO) 59 % (42-75); PLATELET COUNT 246 x10^3/uL (130-400); RED BLOOD COUNT 4.97 x10^6/uL (3.82-5.3); RED CELL DISTRIBUTION WIDTH 15.3 % (9.6-15.2)
--- NOTE | 2020-09-16 20:02 | NUR ---
PATIENT GIVEN PAIN MEDICATIONS, TOLERATED WELL. PATIENT TAKEN WITH TECH TO ULTRASOUND. PATIENT WAS DIFFICULT IV START, TOLERATED POORLY. SUCCESSFUL IV PLACED ON SECOND ATTEMPT.
[2020-09-16 20:03] LABS: MD NO
--- NOTE | 2020-09-16 20:28 | NUR ---
PATIENT ARRIVED FROM ULTRASOUND, TOLERATED POORLY. PATIENT REQUESTING ADDITIONAL PAIN MEDICATIONS, PROVIDER NOTIFIED.
--- NOTE | 2020-09-16 20:50 | NUR ---
TASK RN: PT MEDICATED FOR PAIN PER EMAR, PT IN OBVIOUS PAIN TEARFUL WHILE SPEAKING TO ADMITTING.
[2020-09-16 20:59] LABS: HCG UR SG 1.033 (1.003-1.030)
[2020-09-16 21:01] LABS: MICROSCOPIC INDICATED
[2020-09-16 21:54] VITALS: BP 132/61
== END 2020-09-16 21:56 | disposition home or self-care (01) ==
LOC: ED 19:19
DX: N83.291 Other ovarian cyst, right side (principal); R10.31 Right lower quadrant pain; R10.32 Left lower quadrant pain; G89.29 Other chronic pain; R10.2 Pelvic and perineal pain; R11.2 Nausea with vomiting, unspecified
CPT/HCPCS: 36415; 76830; 80048; 81001; 81025; 82040; 85025; 87086; 96374; 96375; 96376; 99284; J2270; J2405

== ENCOUNTER 2020-09-24 15:22 | Emergency (ER) | payer MEDICAID ==
[~2020-09-24] VITALS: Ht 170.2 cm; Wt 107.0 kg
--- NOTE | 2020-09-24 15:37 | NUR ---
PATIENT ARRIVES WITH ABDOMINAL PAIN AND NAUSEA THAT BEGAN AT 2:30 THIS MORNING. FLANK/BACK PAIN WELL. PATIENT IS A [facility].
[2020-09-24] MEDS ORDERED: SODIUM CHLORIDE 0.9% 1,000ML IVBOLUS ONE (16:30)
[2020-09-24] MEDS ORDERED: SODIUM CHLORIDE FLUSH 10ML SYR IVF ONE (16:30)
[2020-09-24] MEDS ORDERED: ONDANSETRON 2MG/ML, 2ML IVPush ONE (16:30)
[2020-09-24] MEDS ORDERED: ONDANSETRON 2MG/ML, 2ML ONE (16:37)
[2020-09-24 16:48] LABS: BASOPHILS % (AUTO) 1 % (0-1); EOSINOPHILS % (AUTO) 1 % (1-7); LYMPHOCYTES % (AUTO) 35 % (22-44); MEAN CORPUSCULAR HEMOGLOBIN 29.2 pg (27.0-34.8); MEAN PLATELET VOLUME 8.3 fL (7.4-10.4); MONOCYTES % (AUTO) 5 % (2-9); NEUTROPHILS % (AUTO) 59 % (42-75); PLATELET COUNT 229 x10^3/uL (130-400); RED BLOOD COUNT 5.26 x10^6/uL (3.82-5.3); RED CELL DISTRIBUTION WIDTH 14.9 % (9.6-15.2)
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
[2020-09-24 16:51] LABS: MD NO
[2020-09-24 16:59] LABS: ALANINE AMINOTRANSFERASE 42 U/L (12-78); ALBUMIN 3.6 g/dL (3.4-5.0); ANION GAP 5 mmol/L (5-15); CALCIUM 9.1 mg/dL (8.5-10.1); CHLORIDE 106 mmol/L (98-107); CREATININE 0.71 mg/dL (0.55-1.02)
--- NOTE | 2020-09-24 17:00 | NUR ---
patient adament she wants to leave [facility], angry she didn't get pain medications. discharged.
[2020-09-24 17:01] VITALS: BP 117/70
[2020-09-24 17:04] LABS: ALKALINE PHOSPHATASE 88 U/L (45-117); BILIRUBIN,TOTAL 0.5 mg/dL (0.2-1.0); TOTAL PROTEIN 8.3 g/dL (6.4-8.2)
== END 2020-09-24 17:03 | disposition left against medical advice (07) ==
LOC: ED 16:24
DX: R10.84 Generalized abdominal pain (principal); R11.2 Nausea with vomiting, unspecified; Z90.89 Acquired absence of other organs; Z90.49 Acquired absence of other specified parts of digestive tract; F17.290 Nicotine dependence, other tobacco product, uncomplicated
CPT/HCPCS: 36415; 80053; 83690; 84703; 85025; 96374; 99283; J2405; J7030; 96372

== ENCOUNTER 2020-10-29 20:45 | Emergency (ER) | payer MEDICAID ==
[~2020-10-29] VITALS: Ht 170.2 cm; Wt 89.0 kg
--- NOTE | 2020-10-29 20:55 | NUR ---
CC OF PELVIC/ABD PAIN ON RLQ, PELVIC AREA, BACK, AND L LEG 08/10 THAT STARTED YESTERDAY BUT WORSENED TODAY. PT CALLED ADVERTISING SALES ASSISTANT FOR DR COLVIN INTER COM SERVICER AND WAS INSTRUCTED TO COME TO HOSPITAL. PT HAS HX OF OVARIN CYSTS, TORSION, ENDOMETRIOSIS, AND DVT. EMS STARTED IV 20 IN LEFT FA AND PT RECEIVED 175 MCG OF FENTANYL. PT STATES SHE HAS GONE THROUGH 7 BLOODY PADS TODAY IN THE LAST HOUR
[2020-10-29 21:33] LABS: BASOPHILS % (AUTO) 1 % (0-1); EOSINOPHILS % (AUTO) 1 % (1-7); LYMPHOCYTES % (AUTO) 33 % (22-44); MEAN CORPUSCULAR HEMOGLOBIN 30.5 pg (27.0-34.8); MEAN CORPUSCULAR HGB CONC 33.8 g/dL (32.4-35.8); MEAN PLATELET VOLUME 7.6 fL (7.4-10.4); MONOCYTES % (AUTO) 6 % (2-9); NEUTROPHILS % (AUTO) 60 % (42-75); PLATELET COUNT 230 x10^3/uL (130-400); RED BLOOD COUNT 4.52 x10^6/uL (3.82-5.3); RED CELL DISTRIBUTION WIDTH 14.9 % (9.6-15.2)
[2020-10-29 21:34] LABS: MD NO
[2020-10-29] MEDS ORDERED: DICYCLOMINE 20 MG TABLET ONE (21:39)
[2020-10-29] MEDS ORDERED: ACETAMINOPHEN 325 MG TABLET ONE (21:40)
[2020-10-29 21:42] LABS: ALBUMIN 3.1 g/dL (3.4-5.0); ANION GAP 5 mmol/L (5-15); CALCIUM 8.7 mg/dL (8.5-10.1); CHLORIDE 106 mmol/L (98-107)
[2020-10-29] MEDS ORDERED: HALOPERIDOL 5 MG/ML ONE (21:47)
[2020-10-29 21:48] LABS: ALANINE AMINOTRANSFERASE 28 U/L (12-78); ALKALINE PHOSPHATASE 87 U/L (45-117); BILIRUBIN,TOTAL 0.3 mg/dL (0.2-1.0); CREATININE 0.64 mg/dL (0.55-1.02); TOTAL PROTEIN 7.4 g/dL (6.4-8.2)
[2020-10-29] MEDS ORDERED: MORPHINE SULFATE 4 MG/ML, 1ML ONE (21:57)
[2020-10-29] MEDS ORDERED: HALOPERIDOL 5 MG/ML IV ONE (22:00)
[2020-10-29] MEDS ORDERED: ACETAMINOPHEN 325 MG TABLET PO ONE (22:00)
[2020-10-29] MEDS ORDERED: MORPHINE SULFATE 4 MG/ML, 1ML IVPush ONE (22:00)
[2020-10-29] MEDS ORDERED: DICYCLOMINE 10 MG CAPSULE PO ONE (22:00)
--- NOTE | 2020-10-29 22:06 | NUR ---
PT IN 08/10 ABD PAIN. ORDERS FOR TYLENOL AND BENTYL PLACED. PT REFUSED MEDICATIONS STATING THEY DONT WORK FOR HER. ERP AWARE AND ORDERS PLACED FOR IV HALDOL. PT REFUSED THIS MEDICATED STATING SHE IS ALLERGIC TO IT. RN WILL ADD TO ALLERGY LIST. ERP TO BEDSIDE EDUCATING PT THAT NARCOTIC MEDS ARE NOT FIRST LINE TREATMENT. PT HAS LONG LIST OF ALLERGIES AND REQUESTING MORPHINE STATING " I KNOW MORPHINE WORKS FOR ME". ERP STATED SHE WILL PLACE ORDERS.
[2020-10-29 22:10] LABS: MICROSCOPIC AUTO
[2020-10-29 23:26] VITALS: BP 105/67
== END 2020-10-30 00:14 | disposition home or self-care (01) ==
LOC: ED 22:06
DX: N93.9 Abnormal uterine and vaginal bleeding, unspecified (principal); R10.32 Left lower quadrant pain; R10.31 Right lower quadrant pain; M79.662 Pain in left lower leg; F17.210 Nicotine dependence, cigarettes, uncomplicated; G43.909 Migraine, unspecified, not intractable, without status migrainosus; Z86.718 Personal history of other venous thrombosis and embolism; Z90.49 Acquired absence of other specified parts of digestive tract; Z90.710 Acquired absence of both cervix and uterus
CPT/HCPCS: 36415; 76856; 80053; 81001; 84703; 85025; 93971; 96374; 99285; 99406; J2270

== ENCOUNTER 2020-11-02 16:57 | Emergency (ER) | payer MEDICAID ==
[~2020-11-02] VITALS: Ht 170.2 cm; Wt 89.5 kg
[2020-11-02 17:05] VITALS: BP 111/77
--- NOTE | 2020-11-02 17:20 | NUR ---
PATIENT AMBULATED TO BATHROOM WITH STEADY GAIT TO LEAVE URINE SAMPLE.
--- NOTE | 2020-11-02 17:20 | NUR ---
PATIENT BIB [facility] WITH CHIEF C/O RLQ AND PERIUMBILICAL PAIN X1 DAY. PATIENT REPORTS BLEEDING WITH CLOTS X2 DAYS, AND HAS A HISTORY OF OVARIAN TORSIONS AND ENDOMETRIOSIS. 20 GAUGE IV STARTED LEFT HAND EN ROUTE, AND 50 MCG FENTANYL GIVEN EN ROUTE. NO SIGNS OF ACUTE DISTRESS, PATIENT CONNECTED TO VITALS MACHINE.
[2020-11-02] MEDS ORDERED: SODIUM CHLORIDE FLUSH 10ML SYR IVF ONE (17:30)
--- NOTE | 2020-11-02 17:33 | NUR ---
PT C/O NAUSEA; WILL NOTIFY ERP
[2020-11-02 17:39] LABS: BASOPHILS % (AUTO) 1 % (0-1); EOSINOPHILS % (AUTO) 1 % (1-7); LYMPHOCYTES % (AUTO) 41 % (22-44); MEAN CORPUSCULAR HEMOGLOBIN 30.8 pg (27.0-34.8); MEAN CORPUSCULAR HGB CONC 34.1 g/dL (32.4-35.8); MEAN PLATELET VOLUME 7.6 fL (7.4-10.4); MONOCYTES % (AUTO) 7 % (2-9); NEUTROPHILS % (AUTO) 50 % (42-75); PLATELET COUNT 209 x10^3/uL (130-400); RED BLOOD COUNT 4.33 x10^6/uL (3.82-5.3); RED CELL DISTRIBUTION WIDTH 14.6 % (9.6-15.2)
[2020-11-02 17:43] LABS: CHLORIDE 104 mmol/L (98-107)
[2020-11-02 17:44] LABS: MD NO
[2020-11-02] MEDS ORDERED: ONDANSETRON 2MG/ML, 2ML ONE (17:44)
[2020-11-02 17:45] LABS: ALBUMIN 3.1 g/dL (3.4-5.0); ANION GAP 5 mmol/L (5-15); CALCIUM 8.6 mg/dL (8.5-10.1)
[2020-11-02 17:58] LABS: CREATININE 0.69 mg/dL (0.55-1.02)
[2020-11-02] MEDS ORDERED: ONDANSETRON 2MG/ML, 2ML IVPush ONE (18:00)
[2020-11-02 18:33] LABS: MICROSCOPIC INDICATED
--- NOTE | 2020-11-02 18:42 | NUR ---
ERMD AT BEDSIDE TO DISCUSS POC.
--- NOTE | 2020-11-02 19:14 | NUR ---
Patient given discharge instructions and prescription and they have confirmed that they understand the instructions, taxi voucher provided. Patient in stable condition and ambulatory with steady gait from ED with son to taxi.
== END 2020-11-02 19:15 | disposition home or self-care (01) ==
LOC: ED 18:56
DX: G89.29 Other chronic pain (principal); R10.2 Pelvic and perineal pain; R10.31 Right lower quadrant pain; R19.7 Diarrhea, unspecified; R11.2 Nausea with vomiting, unspecified; Z90.49 Acquired absence of other specified parts of digestive tract; Z90.89 Acquired absence of other organs; Z86.718 Personal history of other venous thrombosis and embolism; Z90.721 Acquired absence of ovaries, unilateral
CPT/HCPCS: 36415; 80048; 81001; 82040; 84703; 85025; 87086; 96374; 99283; J2405

== ENCOUNTER 2020-11-30 19:29 | Emergency (ER) | payer MEDICAID ==
[~2020-11-30] VITALS: Ht 170.2 cm; Wt 100.0 kg
--- NOTE | 2020-11-30 19:31 | NUR ---
PATIENT AMBULATED TO BATHROOM AND BACK TO [facility] WITH STEADY GAIT.
[2020-11-30] MEDS ORDERED: ONDANSETRON 2MG/ML, 2ML ONE (19:41)
[2020-11-30] MEDS ORDERED: MORPHINE SULFATE 4 MG/ML, 1ML ONE ×2 (19:41→20:20)
[2020-11-30] MEDS: MORPHINE SULFATE 4 MG/ML, 1ML IVPush PRN ×2 (19:43→20:21)
--- NOTE | 2020-11-30 19:52 | NUR ---
PATIENT BIB [facility] WITH CHIEF C/O RLQ PAIN THAT STARTED THIS MORNING. PATIENT HAS HISTORY OF OVARIAN CYSTS AND TORSION. PATIENT REPORTS PAIN GOES FROM PELVIS TO GROIN. LMP BEGINNING OF OCTOBER, AND PER PATIENT WAS "HEAVIER THAN USUAL." PER EMS VITALS STABLE EN ROUTE. 20 GAUGE PLACED RFA AND 4 MG MORPHINE GIVEN AT 1900. NADN, VSS, CALL LIGHT WITHIN REACH.
[2020-11-30] MEDS ORDERED: ONDANSETRON 2MG/ML, 2ML IVPush ONE (20:00)
[2020-11-30 20:11] LABS: BASOPHILS % (AUTO) 1 % (0-1); EOSINOPHILS % (AUTO) 1 % (1-7); LYMPHOCYTES % (AUTO) 30 % (22-44); MEAN CORPUSCULAR HEMOGLOBIN 30.9 pg (27.0-34.8); MEAN CORPUSCULAR HGB CONC 34.2 g/dL (32.4-35.8); MEAN PLATELET VOLUME 7.6 fL (7.4-10.4); MONOCYTES % (AUTO) 6 % (2-9); NEUTROPHILS % (AUTO) 62 % (42-75); PLATELET COUNT 249 x10^3/uL (130-400); RED BLOOD COUNT 4.79 x10^6/uL (3.82-5.3); RED CELL DISTRIBUTION WIDTH 15.4 % (9.6-15.2)
[2020-11-30 20:14] LABS: MD NO
[2020-11-30 20:22] LABS: ALBUMIN 3.1 g/dL (3.4-5.0); ANION GAP 6 mmol/L (5-15); CALCIUM 8.8 mg/dL (8.5-10.1); CHLORIDE 107 mmol/L (98-107)
--- NOTE | 2020-11-30 20:23 | NUR ---
Covering primary for break. pt c/o 07/10 abd pain asking for more meds. Admin repeat ms per order. VSS.
[2020-11-30 20:28] LABS: ALANINE AMINOTRANSFERASE 33 U/L (12-78); ALKALINE PHOSPHATASE 88 U/L (45-117); BILIRUBIN,TOTAL 0.4 mg/dL (0.2-1.0); CREATININE 0.63 mg/dL (0.55-1.02); TOTAL PROTEIN 7.6 g/dL (6.4-8.2)
[2020-11-30 20:30] LABS: MICROSCOPIC INDICATED
[2020-11-30] MEDS ORDERED: hydrOXyzine 50MG TABLET ONE (21:12)
--- NOTE | 2020-11-30 21:22 | NUR ---
PATIENT TO ULTRASOUND.
[2020-11-30] MEDS ORDERED: hydrOXyzine 50MG TABLET PO ONE (21:30)
--- NOTE | 2020-11-30 21:43 | NUR ---
PATIENT BACK FROM ULTRASOUND, AMBULATED WITH STEADY GAIT TO BATHROOM AND BACK TO [facility].
--- NOTE | 2020-11-30 22:12 | NUR ---
ERMD AT BEDSIDE TO DISCUSS POC.
[2020-11-30] MEDS ORDERED: OXYcodone/APAP 7.5/325MG TABLET PO ONE (22:30)
[2020-11-30] MEDS ORDERED: OXYcodone/APAP 7.5/325MG TABLET ONE (22:34)
[2020-11-30 22:37] VITALS: BP 125/89
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
== END 2020-11-30 22:45 | disposition home or self-care (01) ==
LOC: ED 20:07
DX: N83.291 Other ovarian cyst, right side (principal); R10.31 Right lower quadrant pain; R11.2 Nausea with vomiting, unspecified; N92.6 Irregular menstruation, unspecified; G43.909 Migraine, unspecified, not intractable, without status migrainosus; F17.200 Nicotine dependence, unspecified, uncomplicated; Z90.721 Acquired absence of ovaries, unilateral
CPT/HCPCS: 36415; 76830; 80053; 81001; 84703; 85025; 87086; 96374; 96375; 96376; 99284; J2270; J2405

== ENCOUNTER 2020-12-04 16:01 | Emergency (ER) | payer MEDICAID ==
[~2020-12-04] VITALS: Ht 170.2 cm; Wt 90.0 kg
--- NOTE | 2020-12-04 16:25 | NUR ---
PT STATES "HE'S DISCHARGING ME". PT IN TEARS. REFUSING ADDITIONAL EXAM AND HISTORY QUESTIONS AT THIS TIME. PT REPORT TO BOSTON VARGAS RN.
--- NOTE | 2020-12-04 16:38 | NUR ---
With re-direction- patient agreeable to ultrasound Provider made aware
[2020-12-04 17:01] LABS: BASOPHILS % (AUTO) 1 % (0-1); EOSINOPHILS % (AUTO) 0 % (1-7); LYMPHOCYTES % (AUTO) 23 % (22-44); MEAN CORPUSCULAR HEMOGLOBIN 30.5 pg (27.0-34.8); MEAN CORPUSCULAR HGB CONC 33.3 g/dL (32.4-35.8); MEAN PLATELET VOLUME 7.6 fL (7.4-10.4); MONOCYTES % (AUTO) 4 % (2-9); NEUTROPHILS % (AUTO) 72 % (42-75); PLATELET COUNT 252 x10^3/uL (130-400); RED CELL DISTRIBUTION WIDTH 15.2 % (9.6-15.2)
--- NOTE | 2020-12-04 17:03 | NUR ---
TRIAGE NOTE NOW MISSING FROM PT CHART.
[2020-12-04 17:14] LABS: ALBUMIN 3.3 g/dL (3.4-5.0); ANION GAP 6 mmol/L (5-15); CALCIUM 8.9 mg/dL (8.5-10.1); CHLORIDE 107 mmol/L (98-107)
[2020-12-04] MEDS ORDERED: DIVA500T2 PO (17:16)
[2020-12-04] MEDS ORDERED: LORA-446 PO (17:16)
[2020-12-04] MEDS ORDERED: ZOLP-413 PO (17:16)
[2020-12-04] MEDS ORDERED: LIDO35.46 TP (17:16)
[2020-12-04] MEDS ORDERED: ESCI20TA5 PO (17:16)
[2020-12-04] MEDS ORDERED: ONDA4TAB13 PO (17:16)
[2020-12-04] MEDS ORDERED: GABA300C PO (17:16)
[2020-12-04 17:18] LABS: ALANINE AMINOTRANSFERASE 24 U/L (12-78); ALKALINE PHOSPHATASE 84 U/L (45-117); BILIRUBIN,TOTAL 0.5 mg/dL (0.2-1.0); CREATININE 0.64 mg/dL (0.55-1.02); TOTAL PROTEIN 7.6 g/dL (6.4-8.2)
[2020-12-04 17:21] LABS: MD NO
[2020-12-04 17:53] LABS: MICROSCOPIC INDICATED
--- NOTE | 2020-12-04 18:02 | NUR ---
ASSUMED CARE FOR DC ONLY Patient/Caregiver given discharge instructions and they have confirmed that they understand the instructions. Patient ambulatory with steady gait.
--- NOTE | 2020-12-04 18:05 | NUR ---
PT STATES SHE HAS BEEN TREATED POORLY, GAVE INCREASE EMOTIONAL SUPPORT AND ASKED HOW WE COULD HELP. PT STATES, "IM IN SO MUCH PAIN AND NO ONE CARES".
[2020-12-04 18:06] VITALS: BP 132/60
== END 2020-12-04 18:08 | disposition home or self-care (01) ==
LOC: ED 17:24
DX: N83.201 Unspecified ovarian cyst, right side (principal); G40.909 Epilepsy, unspecified, not intractable, without status epilepticus; Z86.718 Personal history of other venous thrombosis and embolism
CPT/HCPCS: 36415; 76830; 80053; 81001; 85025; 87086; 99284

== ENCOUNTER 2020-12-06 20:41 | Emergency (ER) | payer MEDICAID ==
[~2020-12-06] VITALS: Ht 170.2 cm; Wt 100.0 kg
[~2020-12-06 20:41] MED LIST changes: +ESCI20TA5 PO; +LIDO35.46 TP; +ONDA4TAB13 PO
[2020-12-06] MEDS ORDERED: MORPHINE SULFATE 4 MG/ML, 1ML IVPush ONE (21:30)
[2020-12-06] MEDS ORDERED: ONDANSETRON 2MG/ML, 2ML IVPush ONE (21:30)
[2020-12-06 21:46] LABS: BASOPHILS % (AUTO) 1 % (0-1); EOSINOPHILS % (AUTO) 1 % (1-7); LYMPHOCYTES % (AUTO) 34 % (22-44); MEAN CORPUSCULAR HEMOGLOBIN 30.5 pg (27.0-34.8); MEAN CORPUSCULAR HGB CONC 33.8 g/dL (32.4-35.8); MEAN PLATELET VOLUME 8.1 fL (7.4-10.4); MONOCYTES % (AUTO) 6 % (2-9); NEUTROPHILS % (AUTO) 58 % (42-75); PLATELET COUNT 229 x10^3/uL (130-400); RED CELL DISTRIBUTION WIDTH 15.1 % (9.6-15.2)
[2020-12-06 21:49] LABS: MD NO
[2020-12-06 21:56] LABS: ALBUMIN 3.4 g/dL (3.4-5.0); ANION GAP 3 mmol/L (5-15); CALCIUM 9.2 mg/dL (8.5-10.1); CHLORIDE 106 mmol/L (98-107); CREATININE 0.58 mg/dL (0.55-1.02)
[2020-12-06] MEDS ORDERED: MORPHINE SULFATE 4 MG/ML, 1ML ONE (21:59)
[2020-12-06] MEDS ORDERED: ONDANSETRON 2MG/ML, 2ML ONE (21:59)
[2020-12-06 22:18] LABS: MICROSCOPIC NOT IND
--- NOTE | 2020-12-06 22:38 | NUR ---
PT RESTING STILL RT SIDE ABD PAIN FROM CYST THAT STARTED AT 1900 TONIGHT, NO NEW COMPLAINTS...
--- NOTE | 2020-12-06 22:57 | NUR ---
PT TO US
--- NOTE | 2020-12-06 23:34 | NUR ---
PT BACK FROM US
[2020-12-07] MEDS ORDERED: MORPHINE SULFATE 4 MG/ML, 1ML ONE (00:06)
[2020-12-07 01:00] VITALS: BP 119/84
== END 2020-12-07 01:08 | disposition home or self-care (01) ==
LOC: ED 21:13
DX: N83.201 Unspecified ovarian cyst, right side (principal); R94.31 Abnormal electrocardiogram [ECG] [EKG]; G40.909 Epilepsy, unspecified, not intractable, without status epilepticus; Z86.718 Personal history of other venous thrombosis and embolism; Z90.89 Acquired absence of other organs; Z90.49 Acquired absence of other specified parts of digestive tract; Z90.722 Acquired absence of ovaries, bilateral
CPT/HCPCS: 36415; 76830; 80048; 81003; 82040; 84703; 85025; 93005; 96374; 96375; 99285; J2270; J2405

== ENCOUNTER 2020-12-10 02:25 | Emergency (ER) | payer MEDICAID ==
[~2020-12-10] VITALS: Ht 170.2 cm; Wt 100.0 kg
[2020-12-10 02:28] VITALS: BP 106/78
--- NOTE | 2020-12-10 02:35 | NUR ---
RN at bedside, provider at bedside.
--- NOTE | 2020-12-10 02:49 | NUR ---
Report to Lucie
[2020-12-10] MEDS ORDERED: OXYcodone/APAP 5/325MG TABLET ONE (02:50)
[2020-12-10] MEDS ORDERED: OXYcodone/APAP 5/325MG TABLET PO ONE (03:00)
--- NOTE | 2020-12-10 03:02 | NUR ---
PT AMBULATORY TO THE DISCHARGE DESK WITH A STEADY GAIT.
--- NOTE | 2020-12-10 03:02 | NUR ---
PT MEDICATED FOR PAIN AND TO BE DISCHARGED. PT STATES SHE WILL CALL [facility] FOR HER RIDE HOME BECAUSE SHE LIVED IN [place].
== END 2020-12-10 03:06 | disposition home or self-care (01) ==
LOC: ED 03:00
DX: N83.201 Unspecified ovarian cyst, right side (principal); G40.909 Epilepsy, unspecified, not intractable, without status epilepticus; Z90.89 Acquired absence of other organs; Z90.49 Acquired absence of other specified parts of digestive tract; Z90.722 Acquired absence of ovaries, bilateral
CPT/HCPCS: 99283

== ENCOUNTER 2021-01-01 15:07 | Emergency (ER) | payer MEDICAID ==
[~2021-01-01] VITALS: Ht 170.2 cm; Wt 100.0 kg
[~2021-01-01 15:07] MED LIST changes: -ESCI20TA5 PO; +ESCI20TA8 PO; +HYDR-1067 PO; -HYDR-3240 PO; -IBUP100T PO; +IBUP100T2 PO; -OXYC-302 PO; +OXYC1TAB14 PO; -OXYC5TAB3 PO; +OXYC5TAB98 PO
--- NOTE | 2021-01-01 15:18 | NUR ---
PT WAS AMBULATORY TO & FROM [facility] W/OUT INCIDENT; VOIDED SPECIMEN PROVIDED - CLEAR YELLOW. LAZARA UTI SX. LMP IN OCTOBER. LAST ORAL: 1300. PRESENTS WITH EGD RESULT FROM 12/21/2020 - NORMAL EGD. Addendum: 01/01/21 at 1630 by FABIO CORRECTION: EGD LISTS POSSIBLE GASTROPARESIS
[2021-01-01 15:49] LABS: MEAN CORPUSCULAR HEMOGLOBIN 30.4 pg (27.0-34.8); MEAN CORPUSCULAR HGB CONC 33.6 g/dL (32.4-35.8); MEAN PLATELET VOLUME 7.3 fL (7.4-10.4); PLATELET COUNT 184 x10^3/uL (130-400); RED BLOOD COUNT 4.84 x10^6/uL (3.82-5.3); RED CELL DISTRIBUTION WIDTH 14.6 % (9.6-15.2)
[2021-01-01] MEDS ORDERED: OXYcodone/APAP 10/325MG TABLET ONE (15:54)
[2021-01-01] MEDS ORDERED: MAALOX/HYOSCYAMINE/LIDOCAINE 45 ML BTL ONE (15:54)
--- NOTE | 2021-01-01 15:58 | NUR ---
PERCOCET AND GI COCKTAIL GIVEN PER EMAR.
[2021-01-01] MEDS ORDERED: MAALOX/HYOSCYAMINE/LIDOCAINE 45 ML BTL PO ONE (16:00)
[2021-01-01] MEDS ORDERED: OXYcodone/APAP 10/325MG TABLET PO ONE (16:00)
[2021-01-01 16:01] LABS: ALANINE AMINOTRANSFERASE 25 U/L (12-78); ALBUMIN 3.3 g/dL (3.4-5.0); ANION GAP 8 mmol/L (5-15); CALCIUM 8.6 mg/dL (8.5-10.1); CHLORIDE 105 mmol/L (98-107); CREATININE 0.64 mg/dL (0.55-1.02)
[2021-01-01] MEDS ORDERED: DICY20TA4 PO (16:01)
[2021-01-01] MEDS ORDERED: PANT40TA6 PO (16:01)
[2021-01-01 16:03] LABS: ALKALINE PHOSPHATASE 82 U/L (45-117); BILIRUBIN,TOTAL 0.4 mg/dL (0.2-1.0); TOTAL PROTEIN 7.6 g/dL (6.4-8.2)
[2021-01-01 16:48] LABS: MD YES
[2021-01-01 16:51] LABS: BAND#(MANUAL) 0.33 x10^3/uL; BANDS%(MANUAL) 3 % (0-7); BASOS#(MANUAL) 0.11 x10^3/uL (0-0.1); BASOS% (MANUAL) 1 % (0-1); LYMPH#(MANUAL) 2.78 x10^3/uL (1-3.4); LYMPHS% (MANUAL) 25 % (22-44); MONOS#(MANUAL) 0.78 x10^3/uL (0.3-2.7); MONOS% (MANUAL) 7 % (2-9); SEGS% (MANUAL) 64 % (42-75)
[2021-01-01 16:52] LABS: <PLATELET ESTIMATE> ADEQUATE; <PLT MORPHOLOGY> NORMAL PLT MORPH; <RBC MORPHOLOGY> NORMAL
[2021-01-01] MEDS ORDERED: PANTOPRAZOLE 40MG TABLET PO ONE (17:30)
[2021-01-01] MEDS ORDERED: PANTOPRAZOLE 40MG TABLET ONE (17:37)
--- NOTE | 2021-01-01 17:47 | NUR ---
PT REPORT TO ALICIA MOSCOSO RN. PROTONIX GIVEN TO BLANKA FOR PT ADMINISTRATION.
[2021-01-01 17:59] VITALS: BP 132/88
--- NOTE | 2021-01-01 18:00 | NUR ---
break nurse: pt medicated with protonix. pt c/o severe pain. updated MD on pt
[2021-01-01] MEDS ORDERED: HYDROmorphone 1 MG/ML, 1ML INJ ONE (18:14)
--- NOTE | 2021-01-01 18:25 | NUR ---
PT REPORT FROM OH MOSCOSO. PT CARE TO BE RESUMED; DC PENDING.
[2021-01-01] MEDS ORDERED: HYDROmorphone 1 MG/ML, 1ML INJ IM ONE (18:30)
== END 2021-01-01 18:41 | disposition home or self-care (01) ==
LOC: ED 17:00
DX: K26.3 Acute duodenal ulcer without hemorrhage or perforation (principal); R10.84 Generalized abdominal pain; F17.200 Nicotine dependence, unspecified, uncomplicated; Z86.718 Personal history of other venous thrombosis and embolism; Z90.49 Acquired absence of other specified parts of digestive tract; Z90.710 Acquired absence of both cervix and uterus; Z88.2 Allergy status to sulfonamides; Z88.5 Allergy status to narcotic agent; Z88.8 Allergy status to other drugs, medicaments and biological substances
CPT/HCPCS: 36415; 80053; 83690; 85025; 96372; 99284; J1170

== ENCOUNTER 2021-01-05 01:13 | Emergency (ER) | payer MEDICAID ==
[~2021-01-05] VITALS: Ht 170.2 cm; Wt 100.0 kg
[~2021-01-05 01:13] MED LIST changes: +DICY20TA4 PO; +PANT40TA6 PO
[2021-01-05 01:19] VITALS: BP 118/71
--- NOTE | 2021-01-05 01:29 | NUR ---
CC OF RIGHT ABD PAIN, HAS EXTENSIVE GI HISTORY WITH RECENT DIAGNOSIS OF GASTROPORESIS AND H PYLORI. PT RECIEVED 100 MCG FENTANYL AND 4 MG ZOFRAN FROM EMS. PT STATING SHE FEELS GOOD NOW.
--- NOTE | 2021-01-05 01:31 | NUR ---
PT REQUESTING NARCATIC PAIN MANAGEMENT STATES HER GI DOC TOLD HER TO COME TO ER AND ASK, ERP IN ROOM AND EDUCATING PT ABOUT OTHER OPTIONS FIRST PT BECAME VERY UPSET STATING "I DONT NEED TO BE HERE THEN", AND "I HAVE THE RIGHT TO PAIN MEDS, ITS NOT MY FAULT IM SICK". PT STATES SHE WANTS TO BE DC'D. PIV DC.
== END 2021-01-05 01:40 | disposition home or self-care (01) ==
LOC: ED 01:28
DX: G89.29 Other chronic pain (principal); R10.84 Generalized abdominal pain; R11.2 Nausea with vomiting, unspecified; F17.210 Nicotine dependence, cigarettes, uncomplicated; Z90.49 Acquired absence of other specified parts of digestive tract; Z86.718 Personal history of other venous thrombosis and embolism
CPT/HCPCS: 99283; 99406

== ENCOUNTER 2021-01-23 14:27 | Emergency (ER) | payer MEDICAID ==
[~2021-01-23] VITALS: Ht 170.2 cm; Wt 98.0 kg
--- NOTE | 2021-01-23 14:40 | NUR ---
THIS IS A 30 YO F BIB EMS W/ C/O VB AFTER BEING KICKED IN STOMACH WHILE PLAYING WITH SON LAST NIGHT. PT REPORTS RLQ ABD PAIN HAS GONE THROUGH 16 PADS. PT WAS DX W/ OVARIAN CYST 08/2020. LMP 10/31/20. PT HAS HX OF OVARIAN TORSION W/ SX, ENDOMETRIOSIS AND LT OVARY REMOVED. PT RESTING ON Chug W. CALL LIGHT IN REACH AND SIDE RAILS UPX2. RESP EVEN AND UNLABORED, NADN. AWAITING ED EVAL.
--- NOTE | 2021-01-23 14:41 | NUR ---
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
[2021-01-23 15:11] VITALS: BP 109/71
--- NOTE | 2021-01-23 15:11 | NUR ---
PT SITTING UP AT BEDSIDE, TALKING ON PHONE, AWAKE AND ALERT. VSS, NADN. AWAITING DC PPWK.
--- NOTE | 2021-01-23 15:23 | NUR ---
Patient given discharge instructions and they have confirmed that they understand the instructions. Patient ambulatory with steady gait.
== END 2021-01-23 15:25 | disposition home or self-care (01) ==
LOC: ED 15:18
DX: R10.31 Right lower quadrant pain (principal); N93.9 Abnormal uterine and vaginal bleeding, unspecified
CPT/HCPCS: 99283

== ENCOUNTER 2021-01-26 20:54 | Emergency (ER) | payer MEDICAID ==
[~2021-01-26] VITALS: Ht 170.2 cm; Wt 85.0 kg
--- NOTE | 2021-01-26 20:54 | NUR ---
INITIAL PT CONTACT. PT PRESENTS TO ED C/O LOWER ABD PAIN AND VAGINAL BLEEDING X5 DAYS. HX OF SAME. PT REPORTS "GOING THROUGH APPROX 4 PADS/HR". 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 PT REPORTS MINIMAL RELIEF OF PAIN. PT SITTING UPRIGHT ON GURNEY, CALL LIGHT AND PERSONAL BELONGINGS WITHIN REACH. WILL CONTINUE TO MONITOR.
--- NOTE | 2021-01-26 20:59 | NUR ---
Paty law in [facility] - 01/26/21 at 2120 by NAEEM NOT IN LOBBY WHEN CALLED
--- NOTE | 2021-01-26 21:10 | NUR ---
ERP AT BEDSIDE
[2021-01-26] MEDS ORDERED: MORPHINE SULFATE 4 MG/ML, 1ML IVPush ONE (21:30)
[2021-01-26] MEDS ORDERED: MORPHINE SULFATE 4 MG/ML, 1ML ONE ×2 (21:35→22:42)
--- NOTE | 2021-01-26 21:38 | NUR ---
PT TO US
--- NOTE | 2021-01-26 22:03 | NUR ---
PT RETURNED FROM US
--- NOTE | 2021-01-26 22:48 | NUR ---
PT CONTINUALLY PRESSING CALL LIGHT C/O PAIN. ERP AWARE, PT MEDICATED PER EMAR. NO ADDITIONAL NEEDS AT THIS TIME.
[2021-01-26 22:51] LABS: BASOPHILS % (AUTO) 0 % (0-1); EOSINOPHILS % (AUTO) 1 % (1-7); LYMPHOCYTES % (AUTO) 44 % (22-44); MEAN CORPUSCULAR HGB CONC 33.7 g/dL (32.4-35.8); MEAN PLATELET VOLUME 7.2 fL (7.4-10.4); MONOCYTES % (AUTO) 6 % (2-9); NEUTROPHILS % (AUTO) 49 % (42-75); PLATELET COUNT 280 x10^3/uL (130-400); RED CELL DISTRIBUTION WIDTH 15.3 % (9.6-15.2)
[2021-01-26 22:52] LABS: ALBUMIN 3.3 g/dL (3.4-5.0); ANION GAP 12 mmol/L (5-15); CALCIUM 8.9 mg/dL (8.5-10.1); CHLORIDE 107 mmol/L (98-107)
[2021-01-26 22:54] LABS: MD NO
[2021-01-26 22:58] LABS: ALANINE AMINOTRANSFERASE 42 U/L (12-78); ALKALINE PHOSPHATASE 81 U/L (45-117); BILIRUBIN,TOTAL 0.3 mg/dL (0.2-1.0); TOTAL PROTEIN 8.3 g/dL (6.4-8.2)
[2021-01-26] MEDS ORDERED: morphine SULFATE 10 MG/ML, 1ML IVPush ONE (23:00)
[2021-01-26 23:30] VITALS: BP 124/76
--- NOTE | 2021-01-26 23:30 | NUR ---
Patient given discharge instructions and they have confirmed that they understand the instructions. Patient ambulatory with steady gait.
== END 2021-01-26 23:32 | disposition home or self-care (01) ==
LOC: ED 23:15
DX: N93.8 Other specified abnormal uterine and vaginal bleeding (principal); R10.31 Right lower quadrant pain; R10.2 Pelvic and perineal pain; F17.200 Nicotine dependence, unspecified, uncomplicated; G40.909 Epilepsy, unspecified, not intractable, without status epilepticus; Z90.89 Acquired absence of other organs; Z90.49 Acquired absence of other specified parts of digestive tract; Z90.721 Acquired absence of ovaries, unilateral; Z86.718 Personal history of other venous thrombosis and embolism
CPT/HCPCS: 36415; 76856; 80053; 84703; 85025; 96374; 96376; 99284; J2270; 96375

== ENCOUNTER 2021-02-02 17:21 | Emergency (ER) | payer MEDICAID ==
[~2021-02-02] VITALS: Ht 170.2 cm; Wt 109.8 kg
--- NOTE | 2021-02-02 17:34 | NUR ---
PT BIB EMS FOR RIGHT LOWER ABD PAIN, 09/09. PT ALSO HAS NAUSEA. PT STATES SHE HAS A LOT OF ABD PROBLEMS AND THIS FEELS LIKE AN OVARIAN TORSION. PT REC'VD 100 MCG OF FENTANYL AND 4 ZOFRAN. PT STATES SHE HASN'T REC'VD ANY RELIEF. PIV STARTED BY YAZMIN ECONOMIC HISTORY TEACHER 22 GA LEFT HAND.
--- NOTE | 2021-02-02 18:41 | NUR ---
bedside report from Kathy CASIANO. pt care transferred at this time. pt nad, appears comfortable, bed in lowest, rails engaged, call light on lap, wctm.
[2021-02-02] MEDS ORDERED: MORPHINE SULFATE 4 MG/ML, 1ML ONE ×2 (18:52→21:22)
[2021-02-02] MEDS ORDERED: ONDANSETRON 2MG/ML, 2ML ONE (18:52)
[2021-02-02] MEDS: MORPHINE SULFATE 4 MG/ML, 1ML IVPush PRN ×2 (18:54→21:24)
[2021-02-02 18:59] LABS: BASOPHILS % (AUTO) 1 % (0-1); EOSINOPHILS % (AUTO) 1 % (1-7); LYMPHOCYTES % (AUTO) 38 % (22-44); MEAN CORPUSCULAR HEMOGLOBIN 31.3 pg (27.0-34.8); MEAN CORPUSCULAR HGB CONC 34.2 g/dL (32.4-35.8); MEAN PLATELET VOLUME 7.4 fL (7.4-10.4); MONOCYTES % (AUTO) 10 % (2-9); NEUTROPHILS % (AUTO) 51 % (42-75); PLATELET COUNT 212 x10^3/uL (130-400); RED BLOOD COUNT 4.31 x10^6/uL (3.82-5.3)
[2021-02-02] MEDS ORDERED: ONDANSETRON 2MG/ML, 2ML IVPush ONE (19:00)
[2021-02-02] MEDS ORDERED: SODIUM CHLORIDE FLUSH 10ML SYR IVF ONE (19:00)
[2021-02-02] MEDS ORDERED: SODIUM CHLORIDE 0.9% 1,000ML IVBOLUS ONE (19:00)
[2021-02-02 19:02] LABS: MD NO
[2021-02-02 19:10] LABS: ALANINE AMINOTRANSFERASE 33 U/L (12-78); ALBUMIN 3.3 g/dL (3.4-5.0); ANION GAP 10 mmol/L (5-15); CALCIUM 8.3 mg/dL (8.5-10.1); CHLORIDE 109 mmol/L (98-107); CREATININE 0.65 mg/dL (0.55-1.02)
[2021-02-02 19:14] LABS: ALKALINE PHOSPHATASE 69 U/L (45-117); BILIRUBIN,TOTAL 0.7 mg/dL (0.2-1.0); TOTAL PROTEIN 7.3 g/dL (6.4-8.2)
--- NOTE | 2021-02-02 19:19 | NUR ---
pt to us at this time. states "i dont think i need to pee at all yet" rn informed pt that we just need a few drops to test. pt nad, resting on gurney, no change in condition, wctm
--- NOTE | 2021-02-02 19:47 | NUR ---
UA COLLECTED AND WALKED TO LAB, PT MENTIONING FLANK PAIN AT THIS TIME, RN INFORMED ERP. PT NAD, RESTING ON GURNEY, APPEARS COMFORTABLE, BED IN LOWEST, RAILS ENGAGED, CALL LIGHT ON LAP, WCTM. WAITING FOR UA AND IMAGING RESULTS.
[2021-02-02 20:10] LABS: MICROSCOPIC AUTO
--- NOTE | 2021-02-02 20:39 | NUR ---
pt resting on gurney, assisted on to bed mondragon to urinate, pt crying stating "i am in so much pain now and the meds are not making it go away", vss, bed in lowest, rails engaged, call light on lap, [facility]. pt chart up for recheck.
--- NOTE | 2021-02-02 21:26 | NUR ---
PT RESTING ON GUDEVAN, NAD, MEDICATED PER JAN, BED IN LOWEST, RAILS ENGAGED, STATES SHE HAS A RIDE HOME. WAITING FOR TESSY MERAZ.
[2021-02-02 21:49] VITALS: BP 134/77
--- NOTE | 2021-02-02 21:49 | NUR ---
Patient given discharge instructions and they have confirmed that they understand the instructions. Patient ambulatory with slight limp but balanced, preferred wheelchair for dc. nad, denies additional questions or needs, no personal belongings left in room after dc.
== END 2021-02-02 22:08 | disposition home or self-care (01) ==
LOC: ED 17:51
DX: S93.491A Sprain of other ligament of right ankle, initial encounter (principal); S80.02XA Contusion of left knee, initial encounter; N83.291 Other ovarian cyst, right side; G89.29 Other chronic pain; R10.11 Right upper quadrant pain; R10.31 Right lower quadrant pain; R10.2 Pelvic and perineal pain; F17.200 Nicotine dependence, unspecified, uncomplicated; G40.909 Epilepsy, unspecified, not intractable, without status epilepticus; G43.909 Migraine, unspecified, not intractable, without status migrainosus; Z86.718 Personal history of other venous thrombosis and embolism; Z90.49 Acquired absence of other specified parts of digestive tract; Z90.89 Acquired absence of other organs; Z90.721 Acquired absence of ovaries, unilateral; X58.XXXA Exposure to other specified factors, initial encounter; Y93.89 Activity, other specified; Y92.89 Other specified places as the place of occurrence of the external cause; Y99.8 Other external cause status
CPT/HCPCS: 36415; 73564; 73610; 76830; 80053; 81001; 83690; 84703; 85025; 87086; 96361; 96374; 96375; 96376; 99285; J2270; J2405; J7030

== ENCOUNTER 2021-02-09 19:01 | Emergency (ER) | payer MEDICAID ==
[~2021-02-09] VITALS: Ht 170.2 cm; Wt 96.0 kg
--- NOTE | 2021-02-09 19:01 | NUR ---
INITIAL PT CONTACT. PT BIBA C/O VAGINAL BLEEDING AND RIGHT LOWER QUAD ABD PAIN. HX OF SAME. 300 FENTANYL, 4 ZOFRAN, 150NS IN FIELD. PT STATES "I HAVE USED 4 PADS IN THE PAST 5 HOURS". PT SITTING UPRIGHT ON GURNEY, NADN, VSS. PT DENIES ANY NEEDS AT THIS TIME. AWAITING ERP. CALL LIGHT AND BELONGINGS WITHIN REACH.
[2021-02-09 20:03] VITALS: BP 124/82
--- NOTE | 2021-02-09 20:14 | NUR ---
PT CALLS THIS RN TO ROOM AND STATES "I HAVENT BEEN SEEN YET BY A DOCTOR, I JUST WANT TO GO, ILL GO SEE MY PRIMARY CARE. I FEEL BETTER ANYWAYS". PT A&OX4, AMBULATORY WITH STEADY GAIT, VSS. PT LEFT ED PRIOR TO BEING SEEN BY A ERP. PT UNWILLING TO STAY IN DEPARTMENT.
== END 2021-02-09 20:19 | disposition left against medical advice (07) ==
LOC: ED 20:13
DX: R10.31 Right lower quadrant pain (principal); N93.9 Abnormal uterine and vaginal bleeding, unspecified
CPT/HCPCS: 93005; 99281

== ENCOUNTER 2021-02-15 19:40 | Emergency (ER) | payer MEDICAID ==
[~2021-02-15] VITALS: Ht 170.2 cm; Wt 100.0 kg
--- NOTE | 2021-02-15 19:54 | NUR ---
PT. IS A & O X 4 WITH A GCS OF 15. PT. HAS C/O RIGHT FLANK PAIN. PT. IS PINK, WARM AND DRY. LUNGS ARE CTA. MM ARE MOIST WITH PULSES +2 THROUGHOUT. PT.'S ABD. IS SOFT AND NON-TENDER WITH BS +X 4 QUADS. PT. HAS THE SIDERAILS UP X 2 AND THE CALL LIGHT IS IN PLACE.
[2021-02-15] MEDS ORDERED: HYDROmorphone 1 MG/ML, 1ML INJ IV ONE ×2 (20:00→22:00)
[2021-02-15] MEDS ORDERED: ONDANSETRON 2MG/ML, 2ML IVPush ONE (20:00)
[2021-02-15] MEDS ORDERED: SODIUM CHLORIDE FLUSH 10ML SYR IVF ONE (20:00)
[2021-02-15] MEDS ORDERED: ONDANSETRON 2MG/ML, 2ML ONE (20:31)
[2021-02-15] MEDS ORDERED: HYDROmorphone 2 MG/ML, 1ML ONE (20:31)
--- NOTE | 2021-02-15 20:43 | NUR ---
PT. IS A VERY DIFFICULT IV STICK. IV ACCESS IN THE PT.'S RIGHT CHEST. PT. WAS MEDICATED PER MD ORDERS. VSS. SIDERAILS REMAIN UP X2 WITH THE CALL LIGHT IN PLACE.
[2021-02-15 21:05] LABS: ALBUMIN 3.7 g/dL (3.4-5.0); ANION GAP 6 mmol/L (5-15); CALCIUM 8.5 mg/dL (8.5-10.1); CHLORIDE 107 mmol/L (98-107)
[2021-02-15 21:09] LABS: ALANINE AMINOTRANSFERASE 47 U/L (12-78); ALKALINE PHOSPHATASE 86 U/L (45-117); BILIRUBIN,TOTAL 0.7 mg/dL (0.2-1.0); CREATININE 0.72 mg/dL (0.55-1.02); TOTAL PROTEIN 8.3 g/dL (6.4-8.2)
--- NOTE | 2021-02-15 21:15 | NUR ---
PT. AMBULATORY TO THE RESTROOM TO VOID.
[2021-02-15 21:34] LABS: MICROSCOPIC INDICATED
[2021-02-15] MEDS ORDERED: HYDROmorphone 1 MG/ML, 1ML INJ ONE (21:59)
--- NOTE | 2021-02-15 22:06 | NUR ---
PT. WAS AMBULATORY TO THE RESTROOM. FURTHER C/O PAIN. PT. WAS MEDICATED FOR PAIN ORDERED. VSS.
[2021-02-15 22:10] LABS: MEAN CORPUSCULAR HEMOGLOBIN 31.1 pg (27.0-34.8); MEAN PLATELET VOLUME 7.6 fL (7.4-10.4); PLATELET COUNT 195 x10^3/uL (130-400); RED BLOOD COUNT 4.89 x10^6/uL (3.82-5.3); RED CELL DISTRIBUTION WIDTH 15.2 % (9.6-15.2)
[2021-02-15 22:11] LABS: MD YES
--- NOTE | 2021-02-15 22:20 | NUR ---
PT. IS REQUESTING DEPAKOTE. DISCUSSED WITH DR. TYSON. NO ORDERS RECEIVED. INSTRUCTED THE PT. TO TAKE HER MEDICATION WHEN SHE GETS HOME. DISCHARGE INSTRUCTIONS WERE GIVEN WITH UNDERSTANDING VERBALIZED ALONG WITH WILLINGNESS TO COMPLY. PT. WAS AMBULATORY TO THE DISCHARGE DESK. VSS.
[2021-02-15 22:22] VITALS: BP 116/80
[2021-02-15 22:34] LABS: BAND#(MANUAL) 0.13 x10^3/uL; BANDS%(MANUAL) 1 % (0-7); LYMPH#(MANUAL) 3.71 x10^3/uL (1-3.4); LYMPHS% (MANUAL) 29 % (22-44); MONOS#(MANUAL) 0.77 x10^3/uL (0.3-2.7); MONOS% (MANUAL) 6 % (2-9); REACTIVE LYMPHS # (MANUAL) 0.26 x10^3/uL (0-0); REACTIVE LYMPHS % (MANUAL) 2 % (0-0); SEG#(MANUAL) 7.94 x10^3/uL (1.8-6.8); SEGS% (MANUAL) 62 % (42-75)
[2021-02-15 22:35] LABS: <PLATELET ESTIMATE> ADEQUATE; <PLT MORPHOLOGY> NORMAL PLT MORPH; <RBC MORPHOLOGY> NORMAL
== END 2021-02-15 22:24 | disposition home or self-care (01) ==
LOC: ED 20:20
DX: R10.11 Right upper quadrant pain (principal); R10.33 Periumbilical pain; F17.200 Nicotine dependence, unspecified, uncomplicated; Z90.49 Acquired absence of other specified parts of digestive tract
CPT/HCPCS: 36415; 74176; 80053; 81001; 83690; 84703; 85025; 87086; 96374; 96375; 96376; 99284; J1170; J2405

== ENCOUNTER 2021-02-17 13:37 | Emergency (ER) | payer MEDICAID ==
[~2021-02-17] VITALS: Ht 152.4 cm; Wt 114.0 kg
--- NOTE | 2021-02-17 13:45 | NUR ---
CODE NEURO @1820 PAGED NEURO @6156
--- NOTE | 2021-02-17 13:53 | NUR ---
THIS IS A 30 YO F W/ C/O RLQ ABD PAIN, VB AND LT SIDED WEAKNESS 45 MINUTES CLIMATOLOGIST. PT HAS MILD LUE WEAKNESS AND MINIMAL RT SIDED FACIAL WEAKNESS. PT ANSWERING QUESTIONS CLEARLY AND APPROPRIATELY. PT ASSESSED BY DR.BOSCOVICH LORENE DIAZ TO CT UPON ARRIVAL. PT ABLE TO TRANSFER SELF FROM CT BED TO ED [place] W/O INCIDENT. PIV CLIMATOLOGIST. PT RETURNED TO ED W/O INCIDNET. RESP EVEN AND UNLABORED, NADN. REPORT GIVEN TO ANÍBAL CASIANO.
--- NOTE | 2021-02-17 13:54 | NUR ---
PER EMS PT REQUESTING PAIN MEDS IN TRANSIT. 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
--- NOTE | 2021-02-17 14:04 | NUR ---
PT BACK FROM CT AT 1346. PT RESTING IN [facility], MONITORING IN PLACE, NADN AT THIS TIME, PT STATES RLQ ABD PAIN IS 10/10 AND IS REQUESTING PAIN MEDICATION. PER REPORT FROM EMS AND RAMIRO, RN PT HAD LEFT UPPER AND LOWER EXTREMITY WEAKNESS BUT AFTER ASSESSMENT FROM THIS RN THERE IS NO OBSERVED WEAKNESS IN LOWER EXTREMITIES. LAB AT BEDSIDE. EKG DONE.
[2021-02-17] MEDS ORDERED: ACETAMINOPHEN 500 MG TABLET ONE (14:32)
--- NOTE | 2021-02-17 14:34 | NUR ---
PT RESTING IN [place] AT THIS TIME, PREVIOUSLY OBSERVED WEAKNESS IS RESOLVED IN ALL EXTREMITIES. PT ALSO SPEAKING CLEARLY ON CELL PHONE. PT STATES NO NEEDS AT THIS TIME.
[2021-02-17 14:39] LABS: BASOPHILS % (AUTO) 1 % (0-1); EOSINOPHILS % (AUTO) 0 % (1-7); LYMPHOCYTES % (AUTO) 23 % (22-44); MEAN CORPUSCULAR HEMOGLOBIN 31.1 pg (27.0-34.8); MEAN CORPUSCULAR HGB CONC 33.6 g/dL (32.4-35.8); MEAN PLATELET VOLUME 7.5 fL (7.4-10.4); MONOCYTES % (AUTO) 5 % (2-9); NEUTROPHILS % (AUTO) 71 % (42-75); PLATELET COUNT 226 x10^3/uL (130-400); RED BLOOD COUNT 4.65 x10^6/uL (3.82-5.3); RED CELL DISTRIBUTION WIDTH 14.9 % (9.6-15.2)
[2021-02-17 14:50] LABS: MD NO
[2021-02-17] MEDS ORDERED: ACETAMINOPHEN 500 MG TABLET PO ONE (15:00)
[2021-02-17 15:10] LABS: INTERNATIONAL NORMALIZED RATIO 0.99 (0.93-1.1); PROTHROMBIN TIME 10.6 Seconds (9.6-11.5)
[2021-02-17 15:37] LABS: ALBUMIN 3.3 g/dL (3.4-5.0); ANION GAP 5 mmol/L (5-15); CALCIUM 8.6 mg/dL (8.5-10.1); CHLORIDE 107 mmol/L (98-107); CREATININE 0.63 mg/dL (0.55-1.02)
[2021-02-17 15:56] VITALS: BP 135/94
== END 2021-02-17 15:58 | disposition home or self-care (01) ==
LOC: ED 14:26
DX: G89.29 Other chronic pain (principal); R10.31 Right lower quadrant pain; R10.32 Left lower quadrant pain; R53.1 Weakness; R00.0 Tachycardia, unspecified; F17.200 Nicotine dependence, unspecified, uncomplicated; Z90.49 Acquired absence of other specified parts of digestive tract; Z90.89 Acquired absence of other organs; Z86.73 Personal history of transient ischemic attack (TIA), and cerebral infarction without residual deficits; Z90.721 Acquired absence of ovaries, unilateral
CPT/HCPCS: 36415; 70450; 80048; 82040; 85025; 85610; 85730; 93005; 99285

== ENCOUNTER 2021-04-24 23:09 | Emergency (ER) | payer MEDICAID ==
[~2021-04-24] VITALS: Ht 170.2 cm; Wt 85.0 kg
[~2021-04-24 23:09] MED LIST changes: -HYDR-1067 PO; +HYDR-2214 PO; -IBUP100T2 PO; +IBUP100T69 PO
--- NOTE | 2021-04-24 23:18 | NUR ---
BIBA. PT HAS BEEN THROWING UP AND HAVING ABDOMINAL PAIN FOR LAST 3 HRS. PT STATES SHE HS BEEN DRY HEAVING RECENTLY. 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 TAKES DEPAKOTE FOR SIEZURES. PT STATES DOCTOR SAYS RIGHT OVARIAN TORSION SHOWS TWISTS ATTACHED TO SP02/BP MONITORS. VSS. BED IN LOW POSITION. CALL LIGHT AND BELONGINGS WITHIN REACH. WCTM
[2021-04-25] MEDS ORDERED: SODIUM CHLORIDE 0.9% 1,000ML IVBOLUS ONE
[2021-04-25] MEDS ORDERED: SODIUM CHLORIDE FLUSH 10ML SYR IVF ONE
[2021-04-25] MEDS ORDERED: ONDANSETRON 2MG/ML, 2ML IVPush ONE
[2021-04-25] MEDS ORDERED: ONDANSETRON 2MG/ML, 2ML ONE (00:10)
[2021-04-25 00:12] LABS: BASOPHILS % (AUTO) 1 % (0-1); EOSINOPHILS % (AUTO) 1 % (1-7); LYMPHOCYTES % (AUTO) 34 % (22-44); MEAN CORPUSCULAR HEMOGLOBIN 31.3 pg (27.0-34.8); MEAN PLATELET VOLUME 7.2 fL (7.4-10.4); MONOCYTES % (AUTO) 8 % (2-9); NEUTROPHILS % (AUTO) 56 % (42-75); PLATELET COUNT 234 x10^3/uL (130-400); RED BLOOD COUNT 4.17 x10^6/uL (3.82-5.3); RED CELL DISTRIBUTION WIDTH 14.9 % (9.6-15.2)
[2021-04-25 00:13] LABS: MD NO
[2021-04-25 00:16] VITALS: BP 126/88
[2021-04-25 00:25] LABS: ALANINE AMINOTRANSFERASE 25 U/L (12-78); ANION GAP 5 mmol/L (5-15); CALCIUM 8.5 mg/dL (8.5-10.1); CHLORIDE 111 mmol/L (98-107); CREATININE 0.49 mg/dL (0.55-1.02)
[2021-04-25 00:27] LABS: ALKALINE PHOSPHATASE 72 U/L (45-117); BILIRUBIN,TOTAL 0.2 mg/dL (0.2-1.0); TOTAL PROTEIN 6.8 g/dL (6.4-8.2)
--- NOTE | 2021-04-25 00:30 | NUR ---
Patient given discharge instructions and they have confirmed that they understand the instructions. Patient ambulatory with steady gait.
== END 2021-04-25 00:44 | disposition home or self-care (01) ==
LOC: ED 23:33
DX: R10.84 Generalized abdominal pain (principal); G89.29 Other chronic pain; R11.2 Nausea with vomiting, unspecified; Z87.11 Personal history of peptic ulcer disease; Z90.89 Acquired absence of other organs; Z90.49 Acquired absence of other specified parts of digestive tract; Z90.722 Acquired absence of ovaries, bilateral; Z86.718 Personal history of other venous thrombosis and embolism
CPT/HCPCS: 36415; 74021; 80053; 85025; 96374; 99284; J2405

== ENCOUNTER 2021-07-15 20:23 | Emergency (ER) | payer MEDICAID ==
[~2021-07-15] VITALS: Ht 172.7 cm; Wt 83.6 kg
[2021-07-15 22:44] LABS: MICROSCOPIC INDICATED
[2021-07-15 23:46] VITALS: BP 96/60
== END 2021-07-15 23:58 | disposition home or self-care (01) ==
LOC: ED 21:03
DX: N30.00 Acute cystitis without hematuria (principal); R10.31 Right lower quadrant pain; Z86.718 Personal history of other venous thrombosis and embolism; Z90.49 Acquired absence of other specified parts of digestive tract
CPT/HCPCS: 36415; 76801; 81001; 84703; 87086; 99284

== ENCOUNTER 2021-07-30 20:19 | Emergency (ER) | payer MEDICAID ==
[~2021-07-30] VITALS: Ht 167.6 cm; Wt 95.0 kg
[~2021-07-30 20:19] MED LIST changes: +OXYC1TAB12 PO; -OXYC1TAB14 PO
[2021-07-30 20:24] VITALS: BP 128/92
--- NOTE | 2021-07-30 21:14 | NUR ---
US AT BEDSIDE
[2021-07-30] MEDS ORDERED: NAPROXEN 500 MG TABLET PO ONE (21:30)
[2021-07-30] MEDS ORDERED: NAPROXEN 500 MG TABLET ONE (21:30)
--- NOTE | 2021-07-30 21:33 | NUR ---
PATIENT REQUESTING PAIN MEDICATION. MD WAGNER ORDERED NAPROXEN. PATIENT STATES SHE IS ALLERGIC AND GOES INTO TO ANAPHYLAXIS. MD HERNANDEZ.
--- NOTE | 2021-07-30 22:04 | NUR ---
PATIENT REQUESTING TO SPEAK WITH MD ABOUT HER CARE HERE. PATIENT STATES "IF SHE DOESNT LIKE ME THEN THATS OK I CAN LEAVE BUT SHE ISNT HELPING ME." WILL MAKE MD AWARE.
--- NOTE | 2021-07-30 22:24 | NUR ---
MD WAGNER AT BEDSIDE.
--- NOTE | 2021-07-30 22:29 | NUR ---
Patient given discharge instructions and they have confirmed that they understand the instructions. Patient ambulatory with steady gait. NAD, all questions answered appropriately, denies additional needs at this time. No personal belongings left in room after discharge.
== END 2021-07-30 22:31 | disposition home or self-care (01) ==
LOC: ED 21:45
DX: M79.652 Pain in left thigh (principal); Z90.89 Acquired absence of other organs; Z90.49 Acquired absence of other specified parts of digestive tract; Z90.710 Acquired absence of both cervix and uterus
CPT/HCPCS: 99284